=== PATIENT | female | born 1985 | race African-American/Black ===

== ENCOUNTER 2019-08-20 18:24 | Emergency (ER) | payer OTHER, SELFPAY ==
[2019-08-20 19:02] VITALS: BP 97/50; PULSE 109; RESP 16; TEMP 38; O2SAT 100
--- NOTE | 2019-08-20 19:04 | ED.GENADULT ---
HPI - General Adult General Chief complaint: Upper Respiratory Infection Stated complaint: Congestion, wheezing, body aches, JOY Time Seen by Provider: 08/20/19 18:35 History of Present Illness HPI narrative: Patient is a 34-year-old female who presents ER with runny nose/sore throat/cough. Patient was seen in urgent care last night and tested negative for flu but her son tested positive for the flu. She was prescribed Tamiflu and has been taking as prescribed. She has not been taking any antipyretics. She reports body aches. No vomiting but feels dehydrated. Currently febrile. Related Data Allergies Allergy/AdvReac Type Severity Reaction Status Date / Time No Known Allergies Allergy Unverified 03/09/17 21:01 Review of Systems Review of Systems: All systems reviewed & are unremarkable except as noted in HPI and below Constitutional: Constitutional: Reports chills, Reports fatigue and Reports fever(s) ENT: Reports nasal congestion and Reports sore throat Respiratory: Respiratory: Reports cough, Reports dyspnea and Denies wheezing Gastrointestinal: Gastrointestinal: Denies abdominal pain, Denies nausea and Denies vomiting PMFSH Past Medical History Medical History (Updated 08/20/19 @ 19:09 by Ricardo Pickens MD) No pertinent past medical history Surgical History Surgical History (Updated 08/20/19 @ 19:06 by Ricardo Pickens MD) No pertinent past surgical history Social History Social History (Updated 08/20/19 @ 19:06 by Ricardo Pickens MD) Smoking status: Never smoker Gender identity (if verbalized by the patient): Female Exam Narrative: Exam Narrative: GENERAL: Well-appearing, well-nourished, and in no acute distress. HEAD: Normocephalic, atraumatic. ENT: Mucous membranes moist. CHEST: Clear to auscultation. No respiratory distress. HEART: Regular rate and rhythm. No murmur heard. Normal peripheral pulses. EXTREMITIES: Normal range of motion. Strength NEURO: Alert and oriented x3. PSYCH: Normal mood and affect. Course Course Emergency Course: IV fluid and Toradol here. Discharge home with prescription for ibuprofen. Vital Signs Vital signs: Vital Signs Temperature 100.4 F H 08/20/19 19:02 Pulse Rate 109 H 08/20/19 19:02 Respiratory Rate 16 08/20/19 19:02 Blood Pressure 97/50 L 08/20/19 19:02 Pulse Oximetry 100 08/20/19 19:02 Temperature 100.4 F H 08/20/19 19:02 Pulse Rate 97 08/20/19 19:44 Respiratory Rate 16 08/20/19 19:44 Blood Pressure 103/62 08/20/19 19:44 Pulse Oximetry 100 08/20/19 19:44 Medical Decision Making Vital Signs Vital Signs: Vital Signs Temperature 100.4 F H 08/20/19 19:02 Pulse Rate 109 H 08/20/19 19:02 Respiratory Rate 16 08/20/19 19:02 Blood Pressure 97/50 L 08/20/19 19:02 Pulse Oximetry 100 08/20/19 19:02 Temperature 100.4 F H 08/20/19 19:02 Pulse Rate 97 08/20/19 19:44 Respiratory Rate 16 08/20/19 19:44 Blood Pressure 103/62 08/20/19 19:44 Pulse Oximetry 100 08/20/19 19:44 Discharge Plan Discharge Clinical Impression: Viral infection Patient Disposition: Home, Self-Care Condition: Stable Instructions: Viral Syndrome (ED) Additional Instructions: Return the ER if he cannot keep down food or water, you have chest pain or shortness of breath, you lose consciousness, you have additional concerns. Prescriptions: New ibuprofen 800 mg tablet 800 mg PO TID Qty: 20 RF: 0 Follow-up/Referrals: Glenroy Blanco MD [Physician] - 1 Week PHYSICIAN,CORE SETTER [Primary Care Provider] - Stand Alone Forms: Work/School Release IP
[2019-08-20] MEDS: KETOROLAC 30 MG/ML VIAL (*BKC) IV PUSH (19:16)
[2019-08-20] MEDS: SODIUM CHLORIDE 0.9% IV 1,000 ML 999 ML IV CONT (19:17)
[2019-08-20 19:44] VITALS: BP 103/62; PULSE 97; RESP 16; O2SAT 100
--- NOTE | 2019-08-27 14:45 | PC.NURSE ---
LATE ENTRY This note is being entered to document information to the patient's record. The following information was omitted on [08/27/19], by [Jaimee ANGEL stopped at 2017 on 08/20/19].
== END 2019-08-20 20:23 | disposition home or self-care (01) ==
PROVIDERS: Emergency Provider Emergency Medicine
DX: B34.9 Viral infection, unspecified (principal)
CPT/HCPCS: 96361; 96374; 99284; J1885; J7030

== ENCOUNTER 2022-01-26 15:41 | Outpatient (CLI) | payer OTHER, SELFPAY ==
[2022-01-26 16:09] LABS: Hematocrit 32.5 % (37.0-47.0); Hemoglobin 9.6 g/dL (12.0-15.0); Mean Corpuscular HGB Conc 29.5 g/dl (32-36); Mean Corpuscular Hemoglobin 21.2 pg (26-34); Mean Corpuscular Volume 71.7 fl (80-100); Mean Platelet Volume 9.3 fl (7.4-10.4); Platelet Count Result 574 k/mm3 (150-375); Red Blood Count 4.53 M/mm3 (4.2-5.4); Red Cell Distribution Width 18.8 % (11.5-14.5); White Blood Count 8.7 K/mm3 (4.5-10.0)
[2022-01-26 16:58] LABS: HIV 1/2 Ab P24 Ag Result Negative (Negative)
[2022-01-26 17:00] LABS: Hepatitis B Surface Antigen Negative (Negative)
[2022-01-26 17:17] LABS: Hepatitis C Virus Antibody Negative (Negative)
[2022-01-27 07:53] LABS: Rapid Plasma Reagin Non-Reactive (NonReactive)
== END 2022-01-26 15:42 | disposition home or self-care (01) ==
LOC: ANHLAB 15:43
PROVIDERS: Visit Provider Obstetrics & Gynecology
DX: N92.0 Excessive and frequent menstruation with regular cycle (principal); Z20.2 Contact with and (suspected) exposure to infections with a predominantly sexual mode of transmission
CPT/HCPCS: 36415; 84443; 85027; 86592; 86703; 86803; 87340; G0432

== ENCOUNTER 2023-03-27 15:02 | Outpatient (CLI) | payer OTHER, SELFPAY ==
--- NOTE | ~2023-03-27 | US_ITS ---
EXAMINATION: US pelvic complete w TV DATE: 03/27/2023 16:54 INDICATION: Pelvic and perineal pain Comparison:No prior studies for comparison. TECHNIQUE: Multiple transabdominal and endovaginal sonographic images of the pelvis performed. FINDINGS: The uterus measures 8.7 x 4.1 x 6.3 cm. Superficial shadowing is noted overlying the uterus anteriorly, likely prior section scar. The endometrial complex measures 16 mm. The right ovary measures 3.5 x 1.9 x 2.3 cm and the left ovary measures 3.8 x 2.7 x 2.5 cm. The there is a left ovarian cyst measuring 2 cm. There are small follicles in each ovary. Normal doppler signa l in both ovaries. There is free fluid in the pelvis. There are no abnormal masses seen on either side. IMPRESSION: 1. Left ovarian cyst measuring 2 cm. 2: Endometrial thickening measuring 1.6 cm. Reviewed, dictated and finalized at location A.
== END 2023-03-27 15:03 | disposition home or self-care (01) ==
PROVIDERS: Visit Provider Registered Nurse
DX: R10.2 Pelvic and perineal pain (principal); N83.202 Unspecified ovarian cyst, left side
CPT/HCPCS: 76830; 76856

== ENCOUNTER 2024-08-09 15:16 | Outpatient (CLI) | payer OTHER, SELFPAY ==
--- OUTSIDE RECORDS SUMMARY | 2024-08-09 15:31 | XMS_ITS | Encounter Summary ---
Author Organization [facility] Address [address] [place] [address] Care Team Providers Care Polymer Materials Consultant Name Role Phone José Antonio Domingo DO Primary Care Provider [phone] Encounter Details Date Type Department Care Team (Latest Contact Info) Description 04/04/2008 Outpatient [place] [address] [place] [address] Twin , Antepartum Social History Tobacco Use Types Packs/Day Years Used Date Smoking Tobacco: Never Assessed Comments Unknown Sex and Gender Information Value Date Recorded Sex Assigned at Not on file Legal Sex Female 5:23 AM WINDOW SHADE ESTIMATOR Gender Identity Not on file Sexual Orientation Not on file documented as of this encounter Plan of Treatment Not on file documented as of this encounter Procedures Procedure Name Priority Date/Time Associated Diagnosis Comments US OB LTD 1 OR MORE FETUSES Timed Study 04/11/2008 8:22 AM CDT documented in this encounter Results * US OB LTD 1 OR MORE FETUSES (04/11/2008 8:22 AM CDT) Anatomical Region Laterality Modality Pelvis Other Narrative 04/11/2008 8:22 AM CDT Results in [facility] Procedure Note 01/15/2009 Results in [facility] Paulette Nathan MD ORDERABLES Final Result documented in this encounter Visit Diagnoses Diagnosis Twin , antepartum documented in this encounter Care Teams Polymer Materials Consultant Relationship Specialty Start Date End Date José Antonio Domingo DO PCP - General 06/24/15 documented as of this encounter
--- OUTSIDE RECORDS SUMMARY | 2024-08-09 15:31 | XMS_ITS | Encounter Summary ---
Author Organization [facility] Address 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
--- OUTSIDE RECORDS SUMMARY | 2024-08-09 15:31 | XMS_ITS | Encounter Summary ---
Author Organization [employer] [facility] Address [address] [place] [address] Care Team Providers Care Dramatic Critic Name Role Phone José Antonio Domingo DO Primary Care Provider [phone] Encounter Details Date Type Department Care Team (Late st Contact Info) Description 06/27/2008 Inpatient Historical [place] [address] [place] [address] Laura Hector MD NO ADDRESS ON FILE Social History Tobacco Use Types Packs/Day Years Used Date Smoking Tobacco: Never Assessed Comments Unknown Sex and Gender Information Value Date Recorded Sex Assigned at Not on file Legal Sex Female 5:23 AM LEAF SORTER Gender Identity Not on file Sexual Orientation Not on file documented as of this encounter Plan of Treatment Not on file documented as of this encounter Procedures Procedure Name Priority Date/Time Associated Diagnosis Comments BACTERIAL VAGINOSIS STAIN Stat 06/27/2008 6:42 PM LEAF SORTER GC/CHLAMYDIA, GENITAL Stat 06/27/2008 6:42 PM LEAF SORTER (BROTH-ENRICHED) GROUP B STREP DETECTION Stat 06/27/2008 6:42 PM LEAF SORTER FIBRONECTIN Stat 06/27/2008 6:4 2 PM LEAF SORTER CBC WITH DIFFERENTIAL Stat 06/27/2008 6:20 PM LEAF SORTER URINALYSIS W/REFLEX MICROSCOPIC Stat 06/27/2008 6:19 PM LEAF SORTER documented in this encounter Results * FIBRONECTIN (06/27/2008 6:42 PM LEAF SORTER) GESTATIONAL AGE 28.0 Weeks [facility] FIBRONECTIN Negative Negative [facility] Vaginal 06/27/2008 6:42 PM LEAF SORTER 06/27/2008 6:52 PM LEAF SORTER Paulette Nathan MD BODY FLUIDS AND STOOLS Final R esult Performing Organization Address [facility] Phone Number INTERFACE SYSTEM Refer to clinic/hospital department [facility] CLIA# [id number] [address] [place] [address] * BACTERIAL VAGINOSIS STAIN (06/27/2008 6:42 PM LEAF SORTER) FINAL REPORT Cells: epithelial cells > WBC's Kane Score = 0 Interpretation : ??Consistent with normal vaginal isabel [facility] Vaginal 06/27/2008 6:42 PM LEAF SORTER 06/27/2008 7:09 PM LEAF SORTER us Paulette Nathan MD MICROBIOLOGY - GENERAL ORDERAB LES Final Result Performing Organization Address [facility] Phone Number INTERFACE SYSTEM Refer to clinic/hospital department [facility] CLIA# [id number] [address] [place] [address] * STREPTOCOCCUS GROUP B CULTURE (06/27/2008 6:42 PM LEAF SORTER) PRELIMINARY REPORT Pending [facility] FINAL REPORT No Streptococcus Group B isolated. [facility] 06/27/2008 6:42 PM LEAF SORTER 06/27/2008 7:09 PM LEAF SORTER us Paulette Nathan MD MICROBIOLOGY - GENERAL ORDERAB LES Final Result Performing Organization Address City/[facility]/ZIP Co de Phone Number INTERFACE SYSTEM Refer to clinic/hospital department [facility] CLIA# [id number] [address] [place] [address] * GC AND CHLAMYDIA PROBE (06/27/2008 6:42 PM LEAF SORTER) FINAL REPORT No Neisseria gonorrhoeae detected. No Chlamydia trachomatis detected. [facility] Endocervical 06/27/2008 6:42 PM LEAF SORTER 06/27/2008 7:09 PM LEAF SORTER Narrative INTERFACE SYSTEM - 06/30/2008 2:59 PM LEAF SORTER All identification methods for Chlamydia trachomatis and Neisseria gonorrhoeae can yield false positive results. ??In circumstances where diagnosis could lead to adverse psychosocial impacts, additional testing is recommended. ??A negative test result does not exclude infection. ??Consultation with the lab is recommended whenever the test result is negative and the clinical indications strongly suggest Chlamydial or Gonorrhoeal infection. ??Culture is the only recommended procedure for diagnosing Chlamydial or Gonorrhoeal infection in cases of suspected child abuse. Paulette Nathan MD [employer] Fin al Result INTERFACE SYSTEM Refer to clinic/hospital department [facility] CLIA# [id number] [address] [place] [address] * (ABNORMAL) CBC WITH DIFFERENTIAL (06/27/2008 6:20 PM LEAF SORTER) WBC 9.3 4.0 - 9.8 K/uL [facility] MCH 28.5 27.2 - 32.6 pg [facility] MPV 10.2 9.3 - 12.4 fL [facility] HEMATOCRIT 30.5(L) 35.5 - 44.0 % [facility] RDW-STDEV 43.6 37.1 - 48.7 fL [facility] RBC 3.54(L) 3.90 - 4.90 M/uL [facility] MCHC 33.1 31.5 - 35.5 % [facility] MCV 86.2 82.0 - 99.0 fL [facility] PLATELETS 186 140 - 350 K/uL [facility] HEMOGLOBIN 10.1(L) 11.8 - 14.8 g/dL [facility] RDW 13.9 11.5 - 14.5 % [facility] LYMPHOCYTES 39 16 - 45 % [facility] MONOCYTE ABSOLUTE 0.72 0.10 - 1.30 K/uL [facility] LYMPHOCYTE ABSOLUTE 3.60 0.70 - 4.50 K/uL [facility] BASOPHILS 0 0 - 2 % [facility] MONOCYTES 8 3 - 13 % [facility] NEUTROPHILS 53 45 - 70 % [facility] NEUTROPHIL ABSOLUTE 4.94 1.90 - 7.00 K/uL [facility] EOSINOPHILS 1 0 - 7 % [facility] BASOPHILS ABSOLUTE 0.01 0.00 - 0.20 K/uL [facility] EOSINOPHIL ABSOLUTE 0.05 0.00 - 0.70 K/uL [facility] Blood specimen (specimen) 06/27/2008 6:20 PM LEAF SORTER 06/27/2008 6:25 PM LEAF SORTER us Paulette Nathan MD HEMATOLOGY ORDERABLES Edited INTERFACE SYSTEM Refer to clinic/hospital department [facility] CLIA# [id number] [address] [place] [address] * (ABNORMAL) URINALYSIS (06/27/2008 6:19 PM LEAF SORTER) COLOR UA Yellow [facility] NITRITE UA Negative Negative [facility] EPITHELIAL CELLS, URINE 2-5 /HPF [facility] UROBILINOGEN UA 2(H) <=1 mg/dL [facility] PH UA 7.0 5.0 - 8.0 [facility] WBC UA 2 0 - 5 /HPF [facility] KETONES UA Negative Negative [facility] CLARITY UA Slt. Cloudy(A) Clear [facility] BILIRUBIN UA Negative Negative [facility] PROTEIN UA Trace(A) Negative [facility] LEUKOCYTE ESTERASE UA Negative Negative [facility] RBC UA 1 0 - 4 /HPF [facility] SPECIFIC GRAVITY UA 1.016 1.001 - 1.035 [facility] GLUCOSE UA Negative Negative [facility] BLOOD UA Negative Negative [facility] Urine specimen (specimen) 06/27/2008 6:19 PM LEAF SORTER 06/27/2008 6:21 PM LEAF SORTER us Paulette Nathan MD URINE ORDERABLES Final Result INTERFACE SYSTEM Refer to clinic/hospital department [facility] CLIA# [id number] [address] [place] [address] documented in this encounter Visit Diagnoses Not on filedocumented in this encounter Care Teams Dramatic Critic Relationship Specialty Start Date End Date José Antonio Domingo DO PCP - General 06/24/15 documented as of this encounter
--- OUTSIDE RECORDS SUMMARY | 2024-08-09 15:31 | XMS_ITS | Clinical Summary ---
Author Organization [facility] Administrative Offices Address [address] [place] [address] Care Team Providers Care Mobile Service Rv Technician Name Role Phone José Antonio Domingo DO Primary Care Provider [phone] Allergies No known active allergies Medications azithromycin (ZITHROMAX) 250 mg tablet Take z pack as instructed. 1 Package None 09/05/2014 Active HYDROcodone-acet aminophen (NORCO) 5-325 mg tablet Take 1 Tab by mouth every 6 hours as needed for Pain. Max Daily Amount: 4 Tabs 5 Tab None 09/05/2014 Active Family History Medical History Relation Name Comments Diabetes Father Healthy Mother Relation Name Status Comments Father Alive Mother Alive Social History Tobacco Use Types Packs/Day Years Used Date Smoking Tobacco: Never Alcohol Use Standard Drinks/Week Comments Yes 0 (1 standard drink = 0.6 oz pur e alcohol) Comments No Sex and Gender Information Value Date Recorded Sex Assigned at Not on file Legal Sex Female 5:23 AM PERSONAL BANKING OFFICER Gender Identity Not on file Sexual Orientation Not on file Last Filed Vital Signs Vital Sign Reading Time Taken Comments Blood Pressure 95/54 09/05/2014 12:21 AM PERSONAL BANKING OFFICER Pulse 92 09/05/2014 12:21 AM PERSONAL BANKING OFFICER Temperature 36.8 ??C (98.2 ??F) 09/05/2014 12:[address] Respiratory Rate 16 09/04/2014 9:34 PM PERSONAL BANKING OFFICER Oxygen Saturation 100% 09/05/2014 12:21 AM PERSONAL BANKING OFFICER Inhaled Oxygen Concentration - - Weight 56.2 kg (124 lb) 09/04/2014 6:59 PM PERSONAL BANKING OFFICER Height 154.9 cm (5' 1 ) 09/04/2014 6:59 PM PERSONAL BANKING OFFICER Body Mass Index 23.43 09/04/2014 6:59 PM PERSONAL BANKING OFFICER Plan of Treatment Health Maintenance Due Date Last Done Comments DTAP/TDAP/TD VACCINES (1 - Tdap) 2005 HEPATITIS B VACCINES (1 of 3 - 19+ 3-dose series) 2005 CERVICAL CANCER SCREENING 2016 INFLUENZA VACCINE (#1) 2024 HPV VACCINES Aged Out No longer eligi ble based on patient's age to complete this topic PNEUMOCOCCAL VACCINE 0-64 YEARS Aged Out No longer eligible based on patient's age to complete this topic Insurance [facility] OPEN ACCESS HMO Care Teams Mobile Service Rv Technician Relationship Specialty Start Date End Date José Antonio Domingo DO PCP - General 06/24/15
--- OUTSIDE RECORDS SUMMARY | 2024-08-09 15:31 | XMS_ITS | Referral Summary ---
Author Organization [facility] Address [address] [place] [address] Care Team Providers Care Circuit Judge Name Role Phone José Antonio Domingo Primary Care Provider [phone] Source Comments [facility],non-owned Affiliates and Associated Physician Practices is amultiple site organization consisting of ambulatory clinics and hospital sitesin [place], [place], [place] and [place]. This disclosure is being madepursuant to the Care Everywhere program and may not contain all information available regarding this patient. Last updated 18.[facility] Allergies No known active allergies Medications * Be aware that medications may not be up to date on this document. Alwaysverify current medications with the patient. Medication Sig Dispensed Refills Start Date End Date Status benzonatate (TESSALON) 200 MG capsuleIndications:N asopharyngitis acute Take 1 capsule by mouth 3 times daily as needed for Cough 30 capsule 06/26/2018 Active fluticasone propionate (FLONASE) 50 MCG/ACT nasal sprayIndications:Jimmy opharyngitis acute [place] 2 sprays into each nostril once daily 1 bottles 06/26/2018 Active Active Problems No known active problems Immunizations Name Administration Dates Next Due Taking Point primary monoval ent 12+ yr 0.3mL Purple cap 01/05/2021,12/15/2020 HEP A VACCINE, ADULT 08/29/2018,01/31/2018 INFLUENZA VACCINE, QUADR. (F LUZONE; FLULAVAL; FLUARIX; AFLURIA QUADRIVALENT; 6MO+), 0.5 ML (IIV4) 05/08/2021,04/29/2019 MENINGOCOCCAL CONJUGATE (MCV4P) 01/24/2018 TDAP (7yrs+) 11/08/2017 Social History Tobacco Use Types Packs/Day Years Used Date Smoking Tobacco: Never Smokeless Tobacco: Never Tobacco Cessation:Counseling Given: No Alcohol Use Standard Drinks/Week Comments No 0 (1 standard drink = 0.6 oz pur e alcohol) Sex and Gender Information Value Date Recorded Sex Assigned at Not on file Gender Identity Not on file Sexual Orientation Not on file Last Filed Vital Signs Vital Sign Reading Time Taken Comments Blood Pressure 114/68 06/26/2018 6:21 PM ANALYTICAL TECH Pulse 84 06/26/2018 6:21 PM ANALYTICAL TECH Temperature 37 ??C (98.6 ??F) 06/26/2018 6:21 PM ANALYTICAL TECH Respiratory Rate 16 06/26/2018 6:21 PM ANALYTICAL TECH Oxygen Saturation 98% 06/26/2018 6:21 PM ANALYTICAL TECH Inhaled Oxygen Concentration - - Weight 60.3 kg (133 lb) 06/26/2018 6:21 PM ANALYTICAL TECH Height 154.9 cm (5' 1 ) 06/26/2018 6:21 PM ANALYTICAL TECH Body Mass Index 25.13 06/26/2018 6:21 PM ANALYTICAL TECH Plan of Treatment Not on file Administered Medications Care Teams Circuit Judge Relationship Specialty Start Date End Date José Antonio Domingo DO PCP - General Family Medicine 11/06/12
--- OUTSIDE RECORDS SUMMARY | 2024-08-09 15:31 | XMS_ITS | Encounter Summary ---
Author Organization [employer] Address [address] [place] [address] Care Team Providers Care Tax Consultant Name Role Phone Brayan Domingon Gloria Primary Care Provider [phone] Encounter Details Date Type Department Care Team (Latest Contact Info) Description 08/09/2008 Outpatient Historical [facility] [place] [address] [place] [address] Twin , Antepartum Social History Tobacco Use Types Packs/Day Years Used Date Smoking Tobacco: Never Assessed Comments Unknown Sex and Gender Information Value Date Recorded Sex Assigned at Not on file Legal Sex Female 5:23 AM ROUGE MIXER Gender Identity Not on file Sexual Orientation Not on file documented as of this encounter Plan of Treatment Not on file documented as of this encounter Procedures Procedure Name Priority Date/Time Associated Diagnosis Comments US BIOPHYSICAL PROF WO NST Timed Study 09/01/2008 10:46 AM ROUGE MIXER US BIOPHYSICAL PROF WO NST Timed Study 08/25/2008 11:25 AM ROUGE MIXER US OB LTD 1 OR MORE FETUSES Timed Study 08/11/2008 10:14 AM ROUGE MIXER US BIOPHYSICAL PROF W NST Timed Study 08/11/2008 10:14 AM ROUGE MIXER documented in this encounter Results * US BIOPHYSICAL PROF WO NST (09/01/2008 10:46 AM ROUGE MIXER) Anatomical Region Laterality Modality Pelvis Other Narrative 09/01/2008 10:46 AM ROUGE MIXER Results in [facility] Procedure Note 01/15/2009 Results in [facility] Paulette Nathan MD US ORDERABLES Final Result * US BIOPHYSICAL PROF WO NST (08/25/2008 11:25 AM ROUGE MIXER) Anatomical Region Laterality Modality Pelvis Other Narrative 08/25/2008 11:25 AM ROUGE MIXER Results in [employer] Procedure Note 01/15/2009 Results in [employer] Paulette Nathan MD US ORDERABLES Final Result * US BIOPHYSICAL PROF WO NST (08/18/2008 9:34 AM ROUGE MIXER) Anatomical Region Laterality Modality Pelvis Other Narrative Procedure Note 01/15/2009 Results in [employer] Paulette Nathan MD US ORDERABLES Final Result * US OB LTD 1 OR MORE FETUSES (08/11/2008 10:14 AM ROUGE MIXER) Anatomical Region Laterality Modality Pelvis Other Narrative 08/11/2008 10:14 AM ROUGE MIXER Results in [employer] Procedure Note 01/15/2009 Results in [employer] Paulette Nathan MD US ORDERABLES Final Result * US BIOPHYSICAL PROFILE (08/11/2008 10:14 AM ROUGE MIXER) Anatomical Region Laterality Modality Pelvis Other Narrative 08/11/2008 10:14 AM ROUGE MIXER Results in [employer] Procedure Note 01/15/2009 Results in [employer] Paulette Nathan MD US ORDERABLES Final Result documented in this encounter Visit Diagnoses Diagnosis Twin , antepartum documented in this encounter Care Teams Tax Consultant Relationship Specialty Start Date End Date José Antonio Domingo DO PCP - General 06/24/15 documented as of this encounter
--- OUTSIDE RECORDS SUMMARY | 2024-08-09 15:31 | XMS_ITS | Encounter Summary ---
Author Organization [employer] Address 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
--- OUTSIDE RECORDS SUMMARY | 2024-08-09 15:31 | XMS_ITS | Clinical Summary ---
Author Organization [facility] Address [address] [place] [address] Care Team Providers Care Campaign Advisor Name Role Phone José Antonio Domingo DO Primary Care Provider [phone] Allergies No known active allergies Medications norelgestromin-eth in.estradioL (ORTHO EVRA) 150-35 mcg/24 hrIndications:Preg alicia Contraception Apply 1 patch each week for 3 weeks, then remove for 1 week. 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 History of section, low transverse 08/11 Overview (04/14/2017): Twin Family history of fraternal twins 09/04/2008 H/O LEEP 04/14/2006 40 weeks gestation of Resolved Problems Problem Noted Date Diagnosed Date Resolved Date Group B streptococcal bacteriuria 10/20/2017 11/08/2017 Immunizations Name Administration Dates Next Due Tdap 11/08/2017 Surgical History Surgery Date Site/Laterality Comments SECTION 07/10/2008 - 07/09/2009 section TONSILLECTOMY Tonsillectomy OTHER SURGICAL HISTORY Abnormal PAP: leep CERVICAL BIOPSY W/ LOOP ELECTRODE EXCISION 07/10/2005 - 07/09/2006 Paps WNL since LEEP SECTION 11/08/2017 Medical History Medical History Date Comments History of abnormal cervical Papanicolaou smear 2005 Abnormal PAP Family History Medical History Relation Name Comments Diabetes Father Diabetes mellit us; Hypertension Mother Hypertension; Thyroid disease Mother Thyroid dise ase; Diabetes type II Other Family hist ory of Diabetes mellitus type 2; KDE 08/15/2014 -mother Thyroid disease Sister Thyroid diso rder; Relation Name Status Comments Father Mother Other Sister Social History Tobacco Use Types Packs/Day Years Used Date Smoking Tobacco: Never Smokeless Tobacco: Never Alcohol Use Standard Drinks/Week Comments No 0 (1 standard drink = 0.6 oz pur e alcohol) Comments No Sex and Gender Information Value Date Recorded Sex Assigned at Not on file Legal Sex Female 3:10 AM TELEPHONE RECORDER Gender Identity Female 11/28/2019 2:13 AM CDT Sexual Orientation Straight 11/28/2019 2: 13 AM CDT Obstetrics History Para Term AB IAB SAB Ectopic Multiple Livin g Live Births 2 2 2 1 3 3 Date Outcome GA Total Labor Labor/2nd/3rd Weight Sex Type Anes PTL Pat A1 A5 Name Clin 2008 Term 37w 0d 2.665 kg (5 lb 14 oz) M CS-LT ranv Spinal N Livin g Rimere Complications:None,Twin moraima h 2008 Term 37w 0d 2.325 kg (5 lb 2 oz) M CS-LT ranv Spinal N Livin g Rione Complications:Twin 2017 Term 40w 4d 0h 04m 0h 04m 3.739 kg (8 lb 3.9 oz) M CS-LT ranv Spinal N Livin g 8 9 HEMPHI LL,BOY RONAN muñoz, Dae Bosch MD Complications:None Delivery Location:This [facility] ([facility] Last Filed Vital Signs Vital Sign Reading Time Taken Comments Blood Pressure 110/64 11/28/2019 1:34 PM CDT Pulse 76 05/18/2018 12:03 PM TELEPHONE RECORDER Temperature 36.7 ??C (98.1 ??F) 11/28/2019 1:34 PM CD T Respiratory Rate 18 11/11/2017 6:50 AM CDT Oxygen Saturation 100% 11/09/2017 11:00 PM CDT Inhaled Oxygen Concentration - - Weight 60.3 kg (133 lb) 11/28/2019 1:34 PM CDT Height 154.9 cm (5' 1 ) 11/28/2019 1:34 PM CDT Body Mass Index 25.13 11/28/2019 1:34 PM CDT Plan of Treatment Not on file Insurance [facility] [place] [address] Advance Directives For more information, please contact: [phone] * Full Code (Latest Code Status on File) Date Activated Date Inactivated Comments 11/08/2017 9:48 AM 11/11/2017 3:58 PM * Full Code Date Activated Date Inactivated Comments 11/08/2017 6:49 AM 11/08/2017 9:48 AM Full CPR in ca se of cardiopulmonary arrest * Full Code Date Activated Date Inactivated Comments 11/08/2017 6:49 AM 11/08/2017 6:49 AM Full CPR in ca se of cardiopulmonary arrest Care Teams Campaign Advisor Relationship Specialty Start Date End Date José Antonio Domingo DO [address] [place] [id number] PCP - General Family Medicine 04/09/18
--- OUTSIDE RECORDS SUMMARY | 2024-08-09 15:31 | XMS_ITS | Encounter Summary ---
Author Organization [facility] Address [address] [place] [address] Care Team Providers Care Content Curator Name Role Phone Brayan Domingon Gloria Primary Care Provider Encounter Details Date Type Department Care Team (Late st Contact Info) Description 05/13/2008 Outpatient Historical [facility], Authorized P NO ADDRESS ON FILE Manish Galdamez DO [id number] [place] [address] Social History Tobacco Use Types Packs/Day Years Used Date Smoking Tobacco: Never Assessed Comments Unknown Sex and Gender Information Value Date Recorded Sex Assigned at Not on file Legal Sex Female 5:23 AM CLERK SPECIALIST Gender Identity Not on file Sexual Orientation Not on file documented as of this encounter Plan of Treatment Not on file documented as of this encounter Procedures Procedure Name Priority Date/Time Associated Diagnosis Comments STREP SCREEN GROUP A W/CULTURE Stat 05/13/2008 3:30 AM CLERK SPECIALIST CBC WITH DIFFERENTIAL Stat 05/13/2008 3:30 AM CLERK SPECIALIST COMPREHENSIVE METABOLIC PANEL Stat 05/13/2008 3:30 AM CLERK SPECIALIST documented in this encounter Results * (ABNORMAL) CBC WITH DIFFERENTIAL (05/13/2008 3:30 AM CLERK SPECIALIST) MPV 10.0 9.3 - 12.4 fL [facility] HEMATOCRIT 31.7(L) 35.5 - 44.0 % [facility] RDW-STDEV 41.9 37.1 - 48.7 fL [facility] RBC 3.74(L) 3.90 - 4.90 M/uL [facility] MCHC 33.8 31.5 - 35.5 % [facility] MCV 84.8 82.0 - 99.0 fL [facility] PLATELETS 243 140 - 350 K/uL [facility] HEMOGLOBIN 10.7(L) 11.8 - 14.8 g/dL [facility] RDW 13.8 11.5 - 14.5 % [facility] WBC 8.6 4.0 - 9.8 K/uL [facility] MCH 28.6 27.2 - 32.6 pg [facility] BASOPHILS 0 0 - 2 % [facility] BASOPHILS ABSOLUTE 0.01 0.00 - 0.20 K/uL [facility] MONOCYTES 8 3 - 13 % [facility] MONOCYTE ABSOLUTE 0.65 0.10 - 1.30 K/uL [facility] NEUTROPHILS 78(H) 45 - 70 % [facility] NEUTROPHIL ABSOLUTE 6.70 1.90 - 7.00 K/uL [facility] EOSINOPHILS 0 0 - 7 % [facility] EOSINOPHIL ABSOLUTE 0.01 0.00 - 0.70 K/uL [facility] LYMPHOCYTES 14(L) 16 - 45 % [facility] LYMPHOCYTE ABSOLUTE 1.23 0.70 - 4.50 K/uL [facility] Blood specimen (specimen) 05/13/2008 3:30 AM CLERK SPECIALIST 05/13/2008 3:40 AM CLERK SPECIALIST us Manish Galdamez DO HEMATOLOGY ORDERABLES Edited INTERFACE SYSTEM Refer to clinic/hospital department [facility] CLIA# [id number] [address] [place] [address] * STREP SCREEN GROUP A W/CULTURE (05/13/2008 3:30 AM CLERK SPECIALIST) PRELIMINARY REPORT Negative: ??Group A Strep Screen - Phoned report (with read back verified) to Anastasia in ER ??05/13/08 3:53 AM [facility] FINAL REPORT Negative: ??Group A Strep Screen - Phoned report (with read back verified) to Anastasia in ER ??05/13/08 3:53 AM Negative screen result was confirmed by culture. [facility] Specimen from throat (specimen) 05/13/2008 3:30 AM CLERK SPECIALIST 05/13/2008 3:43 AM CLERK SPECIALIST Manish Galdamez DO MICROBIOLOGY - GENERAL ORDER ROMULO Final Result Performing Organization Address [facility] de Phone Number INTERFACE SYSTEM Refer to clinic/hospital department [facility] CLIA# [id number] [address] [place] [address] * (ABNORMAL) COMPREHENSIVE METABOLIC PANEL (05/13/2008 3:30 AM CLERK SPECIALIST) SODIUM 136 135 - 145 mmol/L [facility] ALKALINE PHOSPHATASE 45 35 - 104 U/L [facility] CO2 21(L) 22 - 30 mmol/L [facility] BILIRUBIN TOTAL 0.2 0.2 - 1.0 mg/dL [facility] POTASSIUM 3.2(L) 3.5 - 4.9 mmol/L [facility] TOTAL PROTEIN 7.0 6.3 - 8.6 g/dL [facility] GLUCOSE 86 65 - 99 mg/dL [facility] AST 20 12 - 32 U/L [facility] BUN 6 6 - 20 mg/dL [facility] CALCIUM 8.9 8.6 - 10.2 mg/dL [facility] ALBUMIN 3.8 3.4 - 4.8 g/dL [facility] CHLORIDE 103 96 - 108 mmol/L [facility] CREATININE 0.56 0.51 - 0.95 mg/dL [facility] ALT 9 0 - 31 U/L [facility] GFR, >60 >=60 mL/min/1. 7 sq meter [facility] GFR >60 >=60 mL/min/1. 7 sq meter [facility] Comment: Modification of Diet in Renal Disease (MDRD) study formula. Estimated GFR rate interpretative information for both Americans and non- Americans is available on the [facility] Intranet at: [email or web address] Select: Lab Policies and Procedures Select: Reference Ranges - GFR Blood specimen (specimen) 05/13/2008 3:30 AM CLERK SPECIALIST 05/13/2008 3:40 AM CLERK SPECIALIST Manish Galdamez DO CHEMISTRY ORDERABLES Edited INTERFACE SYSTEM Refer to clinic/hospital department [facility] CLIA# [id number] [address] [place] [address] documented in this encounter Visit Diagnoses Not on filedocumented in this encounter Care Teams Content Curator Relationship Specialty Start Date End Date José Antonio Domingo DO PCP - General 06/24/15 documented as of this encounter
--- OUTSIDE RECORDS SUMMARY | 2024-08-09 15:31 | XMS_ITS | Encounter Summary ---
Author Organization [employer] [facility] Address [address] [place] [address] Care Team Providers Care Oracle Soa Architect Name Role Phone José Antonio Domingo DO Primary Care Provider [phone] Encounter Details Date Type Department Care Team (Latest Contact Info) Description 03/03/2008 Outpatient Historical [place] [address] [place] [address] Twin , Antepartum Social History Tobacco Use Types Packs/Day Years Used Date Smoking Tobacco: Never Assessed Comments Unknown Sex and Gender Information Value Date Recorded Sex Assigned at Not on file Legal Sex Female 5:23 AM RAILROAD DINING CAR STEWARDESS Gender Identity Not on file Sexual Orientation Not on file documented as of this encounter Plan of Treatment Not on file documented as of this encounter Procedures Procedure Name Priority Date/Time Associated Diagnosis Comments US OB LTD 1 OR MORE FETUSES Timed Study 03/03/2008 11:57 AM CDT documented in this encounter Results * US OB LTD 1 OR MORE FETUSES (03/03/2008 11:57 AM CDT) Anatomical Region Laterality Modality Pelvis Other Narrative 03/03/2008 11:57 AM CDT Results in [employer] Procedure Note 01/15/2009 Results in [employer] Paulette Nathan MD ORDERABLES Final Result documented in this encounter Visit Diagnoses Diagnosis Twin , antepartum documented in this encounter Care Teams Oracle Soa Architect Relationship Specialty Start Date End Date José Antonio Domingo DO PCP - General 06/24/15 documented as of this encounter
--- OUTSIDE RECORDS SUMMARY | 2024-08-09 15:31 | XMS_ITS | Encounter Summary ---
Author Organization [facility] Address [address] [place] [address] Care Team Providers Care Professor Of Chemical Engineering Name Role Phone José Antonio Domingo DO Primary Care Provider [phone] Encounter Details Date Type Department Care Team (Late st Contact Info) Description 02/15/1999 Outpatient [facility] Primary Care - [address] [place] [address] José Antonio Domingo DO Social History Tobacco Use Types Packs/Day Years Used Date Smoking Tobacco: Never Assessed Comments Unknown Sex and Gender Information Value Date Recorded Sex Assigned at Not on file Legal Sex Female 5:23 AM COMPRESSION MOLDING MACHINE OPERATOR Gender Identity Not on file Sexual Orientation Not on file documented as of this encounter Plan of Treatment Not on file documented as of this encounter Visit Diagnoses Not on filedocumented in this encounter Care Teams Professor Of Chemical Engineering Relationship Specialty Start Date End Date José Antonio Domingo DO PCP - General 06/24/15 documented as of this encounter
--- OUTSIDE RECORDS SUMMARY | 2024-08-09 15:31 | XMS_ITS | Encounter Summary ---
Author Organization [employer] [facility] Address [address] [place] [address] Care Team Providers Care Pulp Making Plant Operator Name Role Phone José Antonio Domingo DO Primary Care Provider [phone] Encounter Details Date Type Department Care Team (Latest Contact Info) Description 09/10/2008 Outpatient Historical [facility] [place] [address] [place] [address] Twin , Antepartum Social History Tobacco Use Types Packs/Day Years Used Date Smoking Tobacco: Never Assessed Comments Unknown Sex and Gender Information Value Date Recorded Sex Assigned at Not on file Legal Sex Female 5:23 AM MOVIE OPERATOR Gender Identity Not on file Sexual Orientation Not on file documented as of this encounter Plan of Treatment Not on file documented as of this encounter Visit Diagnoses Diagnosis Twin , antepartum documented in this encounter Care Teams Pulp Making Plant Operator Relationship Specialty Start Date End Date José Antonio Domingo DO PCP - General 06/24/15 documented as of this encounter
--- OUTSIDE RECORDS SUMMARY | 2024-08-09 15:31 | XMS_ITS | Encounter Summary ---
Author Organization [facility] Address [address] [place] [address] Care Team Providers Care Capsule Filler Name Role Phone José Antonio Domingo DO Primary Care Provider [phone] Encounter Details Date Type Department Care Team (Late st Contact Info) Description 03/17/1999 Outpatient [facility] Primary Care - [address] [place] [address] José Antonio Domingo DO Social History Tobacco Use Types Packs/Day Years Used Date Smoking Tobacco: Never Assessed Comments Unknown Sex and Gender Information Value Date Recorded Sex Assigned at Not on file Legal Sex Female 5:23 AM IT CONSULTANT Gender Identity Not on file Sexual Orientation Not on file documented as of this encounter Plan of Treatment Not on file documented as of this encounter Visit Diagnoses Not on filedocumented in this encounter Care Teams Capsule Filler Relationship Specialty Start Date End Date José Antonio Domingo DO PCP - General 06/24/15 documented as of this encounter
--- OUTSIDE RECORDS SUMMARY | 2024-08-09 15:31 | XMS_ITS | Encounter Summary ---
Author Organization [employer] Address [address] [place] [address] Care Team Providers Care Assistant Program Manager Name Role Phone José Antonio Domingo DO Primary Care Provider [phone] Encounter Details Date Type Department Care Team (Latest Contact Info) Description 06/06/2008 Outpatient Historical [place] [address] [place] [address] Twin , Antepartum Social History Tobacco Use Types Packs/Day Years Used Date Smoking Tobacco: Never Assessed Comments Unknown Sex and Gender Information Value Date Recorded Sex Assigned at Not on file Legal Sex Female 5:23 AM DIRECT MARKETING COORDINATOR Gender Identity Not on file Sexual Orientation Not on file documented as of this encounter Plan of Treatment Not on file documented as of this encounter Procedures Procedure Name Priority Date/Time Associated Diagnosis Comments US BIOPHYSICAL PROF WO NST Timed Study 06/26/2008 2:17 PM DIRECT MARKETING COORDINATOR US OB LTD 1 OR MORE FETUSES Timed Study 06/06/2008 11:11 AM DIRECT MARKETING COORDINATOR documented in this encounter Results * US BIOPHYSICAL PROF WO NST (06/26/2008 2:17 PM DIRECT MARKETING COORDINATOR) Anatomical Region Laterality Modality Pelvis Other Narrative 06/26/2008 2:17 PM DIRECT MARKETING COORDINATOR Results in [employer] Procedure Note 01/15/2009 Results in [employer] Paulette Nathan MD US ORDERABLES Final Result * US OB LTD 1 OR MORE FETUSES (06/06/2008 11:11 AM DIRECT MARKETING COORDINATOR) Anatomical Region Laterality Modality Pelvis Other Narrative 06/06/2008 11:11 AM DIRECT MARKETING COORDINATOR Results in [employer] Procedure Note 01/15/2009 Results in [employer] us Paulette Nathan MD US ORDERABLES Final Result documented in this encounter Visit Diagnoses Diagnosis Twin , antepartum documented in this encounter Care Teams Assistant Program Manager Relationship Specialty Start Date End Date José Antonio Domingo DO PCP - General 06/24/15 documented as of this encounter
--- OUTSIDE RECORDS SUMMARY | 2024-08-09 15:31 | XMS_ITS | Encounter Summary ---
Author Organization [employer] [facility] Address [address] [place] [address] Care Team Providers Care Casino Cashier Name Role Phone José Antonio Domingo DO Primary Care Provider [phone] Encounter Details Date Type Department Care Team (Latest Contact Info) Description 05/06/2008 Outpatient Historical [place] [address] [place] [address] Twin , Antepartum Social History Tobacco Use Types Packs/Day Years Used Date Smoking Tobacco: Never Assessed Comments Unknown Sex and Gender Information Value Date Recorded Sex Assigned at Not on file Legal Sex Female 5:23 AM CARTOGRAPHY/MAPPING TECHNICIAN Gender Identity Not on file Sexual Orientation Not on file documented as of this encounter Plan of Treatment Not on file documented as of this encounter Procedures Procedure Name Priority Date/Time Associated Diagnosis Comments US OB LTD 1 OR MORE FETUSES Timed Study 05/08/2008 2:11 PM CDT documented in this encounter Results * US OB LTD 1 OR MORE FETUSES (05/08/2008 2:11 PM CDT) Anatomical Region Laterality Modality Pelvis Other Narrative 05/08/2008 2:11 PM CDT Results in [employer] Procedure Note 01/15/2009 Results in [employer] Paulette Nathan MD ORDERABLES Final Result documented in this encounter Visit Diagnoses Diagnosis Twin , antepartum documented in this encounter Care Teams Casino Cashier Relationship Specialty Start Date End Date José Antonio Domingo DO PCP - General 06/24/15 documented as of this encounter
--- OUTSIDE RECORDS SUMMARY | 2024-08-09 15:31 | XMS_ITS | Patient Health Summary ---
Author Organization [facility] [employer] Address [address] [place] [address] Care Team Providers Care Timber Girdler Name Role Phone José Antonio Domingo Primary Care Provider [phone] Note from [facility],non-owned Affiliates and Associated Physician Practices is amultiple site organization consisting of ambulatory clinics and hospital sitesin [place], [place], [place] and [place]. This disclosure is being madepursuant to the Care Everywhere program and may not contain all information available regarding this patient. Last updated 18.[facility] Allergies No known active allergies Medications * Be aware that medications may not be up to date on this document. Alwaysverify current medications with the patient. * benzonatate (TESSALON) 200 MG capsule(Started 06/26/2018) Take 1 capsule by mouth 3 times daily as needed for Cough * fluticasone propionate (FLONASE) 50 MCG/ACT nasal spray(Started 06/26/2018) [place] 2 sprays into each nostril once daily Active Problems No known active problems Immunizations * Covid [employer] primary monovalent 12+ yr 0.3mL Purple cap(Given 01/05/2021, 12/15/2020) * HEP A VACCINE, ADULT(Given 08/29/2018, 01/31/2018) * INFLUENZA VACCINE, QUADR. (FLUZONE; FLULAVAL; FLUARIX; AFLURIA QUADRIVALENT; 6MO+), 0.5 ML (IIV4)(Given 05/08/2021, 04/29/2019) * MENINGOCOCCAL CONJUGATE (MCV4P)(Given 01/24/2018) * TDAP (7yrs+)(Given 11/08/2017) Social History Tobacco Use Types Packs/Day Years [...] Comments Blood Pressure 114/68 06/26/2018 6:21 PM COMPENSATION ASSOCIATE Pulse 84 06/26/2018 6:21 PM COMPENSATION ASSOCIATE Temperature 37 ??C (98.6 ??F) 06/26/2018 6:21 PM COMPENSATION ASSOCIATE Respiratory Rate 16 06/26/2018 6:21 PM COMPENSATION ASSOCIATE Oxygen Saturation 98% 06/26/2018 6:21 PM COMPENSATION ASSOCIATE Inhaled Oxygen Concentration - - Weight 60.3 kg (133 lb) 06/26/2018 6:21 PM COMPENSATION ASSOCIATE Height 154.9 cm (5' 1 ) 06/26/2018 6:21 PM COMPENSATION ASSOCIATE Body Mass Index 25.13 06/26/2018 6:21 PM COMPENSATION ASSOCIATE Procedures * SKIN TEST PPD - POINT OF CARE(Performed 01/15/2021) Performed for PPD screening test * SKIN TEST PPD - POINT OF CARE(Performed 01/14/2019) Performed for PPD screening test * CULTURE RESPIRATORY UPPER(Performed 06/26/2018) Performed for Nasopharyngitis acute * MONONUCLEOSIS SCREEN - POINT OF CARE (AMB) STL(Performed 06/26/2018) Performed for Nasopharyngitis acute * STREP A SCREEN - POINT OF CARE (AMB) STL(Performed 06/26/2018) Performed for Nasopharyngitis acute * SKIN TEST PPD - POINT OF CARE(Performed 02/02/2018) Performed for Screening for tuberculosis * XR CHEST 2VW(Performed 05/10/2013) Performed for Cough * STREP A SCREEN - POINT OF CARE (IP)(Performed 05/10/2013) * HCG URINE QUALITATIVE - POINT OF CARE(Performed 11/06/2012) * STREP A SCREEN DIRECT W RFLX STREP A CULTURE(Performed 11/06/2012) Results * SKIN TEST PPD - POINT OF CARE (01/15/2021 4:31 PM CDT) Only the most recent of3 resultswithin the time period is included. PPD negative. [facility] Other MISCELLANEOUS SAMPLE S / Unknown 01/15/2021 4:31 PM CDT Troy Alexandra THERMAL SPRAY OPERATOR-ORDER BOOKER LAB - POINT OF CARE ORDERABLES [facility] [place] [address] [place] [address], [facility] [phone] * [facility] Throat Culture (06/26/2018 6:44 PM COMPENSATION ASSOCIATE) Upper Respiratory Culture Final report [facility] INSURANCE BILL Result 1 [facility] INSURANCE BILL Comment:Routine respiratory isabel Microbiology ENTIRE THROAT (SURFACE REGION OF NECK) / Unknown 06/26/2018 6:44 PM COMPENSATION ASSOCIATE 06/26/2018 Narrative Resulting Agency Comment [facility] [address] [facility] ??[facility] [id number] Tiesha Stauffer THERMAL SPRAY OPERATOR-ORDER BOOKER LAB - MICR OBIOLOGY ORDERABLES [facility] INSURANCE BILL [address] [place] [address] * STREP A SCREEN (06/26/2018 6:40 PM COMPENSATION ASSOCIATE) Strep A Rapid POCT Negative Negative Strep A Internal Control Present Lot # [id number] Expiration Date 11/07/2019 Throat ENTIRE THROAT (SURFACE REGION OF NECK) / Unknown 06/26/2018 6:40 PM COMPENSATION ASSOCIATE Tiesha Stauffer THERMAL SPRAY OPERATOR-ORDER BOOKER LAB - POIN T OF CARE ORDERABLES * MONONUCLEOSIS SCREEN - POINT OF CARE (AMB) STL (06/26/2018 6:40 PM COMPENSATION ASSOCIATE) Mononucleosis Screen POCT negative NEGATIVE Granite Test Internal Control present Granite Test Lot# [id number] Granite Test Exp Date 01/07/2020 Blood BLOOD SPECIMEN / Unknown 06/26/2018 6:40 PM COMPENSATION ASSOCIATE Tiesha Donnellyeal THERMAL SPRAY OPERATOR-ORDER BOOKER LAB - POIN T OF CARE ORDERABLES * CXR - PA & LATERAL (05/10/2013 10:36 PM CDT) Anatomical Region Laterality Modality Chest Radiographic Ute ging 05/11/2013 8:34 AM CDT Narrative 05/11/2013 8:34 AM CDT PA + Lateral Chest INDICATION: Cough COMPARISON: none available FINDINGS: There is no focal infiltrate or consolidation. ??There is no pleural effusion or pneumothorax. ??A mass is not detected. ??The heart size is normal. Procedure Note El Tubbs MD - 05/11/2013 PA + Lateral Chest INDICATION: Cough COMPARISON: none available FINDINGS: There is no focal infiltrate or consolidation. There is no pleural effusion or pneumothorax. A mass is not detected. The heart size is normal. Sal Em MD DIAGNOSTIC IMAGING O RDERABLES * STREP A SCREEN - POINT OF CARE (IP) (05/10/2013 10:35 PM CDT) Strep A Rapid POCT negative Negative [facility] POCT TEST[facility] QC Verified yes Yes [facility] POC T TESTING Throat swab (specimen) ENTIRE THROAT (SURFACE REGION OF NECK) / Unknown 05/10/2013 10:35 PM CDT Sal Em MD LAB - POINT OF CARE ORDERABLES Performing Organization Address City/[facility] Co de Phone Number [facility] POCT TEST[facility] [address] [place] [address] * HCG URINE QUALITATIVE - POINT OF CARE (IP) (11/06/2012 4:21 PM CDT) HCG Qual Urine negative Negative [facility] POCT TEST[facility] QC Verified yes Yes [facility] POC T TESTING Urine specimen (specimen) URINE / Unknown 11/06/2012 4:21 PM CDT Teena MARIA LAB - POINT OF CARE ORDERABLES Performing Organization Address [facility]/ZIP Co de Phone Number [facility] POCT [facility] [address] [place] [address] * STREP A SCREEN DIRECT W RFLX STREP A CULTURE (11/06/2012 3:02 PM CDT) Pathologist [facility] Strep A Rapid Negative Negative 11/06/2012 3:48 PM CDT [facility] Throat swab (specimen) ENTIRE THROAT (SURFACE REGION OF NECK) / Unknown 11/06/2012 3:02 PM CDT 11/06/2012 3:35 PM CDT Teena MARIA LAB - MICROBIOLOGY O RDERABLES [facility] [address] [place] [address] Care Teams Timber Girdler Relationship Specialty Start Date End Date José Antonio Domingo DO PCP - General Family Medicine 11/06/12
--- OUTSIDE RECORDS SUMMARY | 2024-08-09 15:31 | XMS_ITS | Encounter Summary ---
Author Organization [employer] [facility] Address [address] [place] [address] Care Team Providers Care Executive Creative Director Name Role Phone Brayan Domingon Gloria Primary Care Provider [phone] Encounter Details Date Type Department Care Team (Latest Contact Info) Description 07/08/2008 Outpatient Historical [facility] [place] [address] [place] [address] Twin , Antepartum Social History Tobacco Use Types Packs/Day Years Used Date Smoking Tobacco: Never Assessed Comments Unknown Sex and Gender Information Value Date Recorded Sex Assigned at Not on file Legal Sex Female 5:23 AM CLOSET BUILDER Gender Identity Not on file Sexual Orientation Not on file documented as of this encounter Plan of Treatment Not on file documented as of this encounter Procedures Procedure Name Priority Date/Time Associated Diagnosis Comments US BIOPHYSICAL PROF WO NST Timed Study 08/04/2008 1:59 PM CLOSET BUILDER US BIOPHYSICAL PROF WO NST Timed Study 07/29/2008 8:38 AM CLOSET BUILDER US OB LTD 1 OR MORE FETUSES Timed Study 07/14/2008 3:37 PM CLOSET BUILDER documented in this encounter Results * US BIOPHYSICAL PROF WO NST (08/04/2008 1:59 PM CLOSET BUILDER) Anatomical Region Laterality Modality Pelvis Other Narrative 08/04/2008 1:59 PM CLOSET BUILDER Results in [employer] Procedure Note 01/15/2009 Results in [employer] Paulette Nathan MD US ORDERABLES Final Result * US BIOPHYSICAL PROF WO NST (07/29/2008 8:38 AM CLOSET BUILDER) Anatomical Region Laterality Modality Pelvis Other Narrative 07/29/2008 8:38 AM CLOSET BUILDER Results in [employer] Procedure Note 01/15/2009 Results in [employer] Paulette Nathan MD US ORDERABLES Final Result * US OB LTD 1 OR MORE FETUSES (07/14/2008 3:37 PM CLOSET BUILDER) Anatomical Region Laterality Modality Pelvis Other Narrative 07/14/2008 3:37 PM CLOSET BUILDER Results in [employer] Procedure Note 01/15/2009 Results in [employer] Paulette Nathan MD US ORDERABLES Final Result documented in this encounter Visit Diagnoses Diagnosis Twin , antepartum documented in this encounter Care Teams Executive Creative Director Relationship Specialty Start Date End Date José Antonio Domingo DO PCP - General 06/24/15 documented as of this encounter
--- OUTSIDE RECORDS SUMMARY | 2024-08-09 15:31 | XMS_ITS | Encounter Summary ---
Author Organization [facility] Address [address] [place] [address] Care Team Providers Care Professor Of Legal Studies Name Role Phone José Antonio Domingo Primary Care Provider [phone] Encounter Details Date Type Department Care Team (Late st Contact Info) Description 09/21/2005 Outpatient Historical [facility] Manish Galdamez DO [address] [place] [address] Er, Authorized P NO ADDRESS ON FILE Influenza with Other Respiratory Manifestations (Primary Dx) Social History Tobacco Use Types Packs/Day Years Used Date Smoking Tobacco: Never Assessed Comments Unknown Sex and Gender Information Value Date Recorded Sex Assigned at Not on file Legal Sex Female 5:23 AM CHILD WELFARE WORKER Gender Identity Not on file Sexual Orientation Not on file documented as of this encounter Plan of Treatment Not on file documented as of this encounter Procedures Procedure Name Priority Date/Time Associated Diagnosis Comments MONONUCLEOSIS SCREEN Routine 09/21/2005 7:54 PM CHILD WELFARE WORKER documented in this encounter Results * MONONUCLEOSIS SCREEN (09/21/2005 7:54 PM CHILD WELFARE WORKER) MONONUCLEOSIS SCREEN Negative Negative INTERFACE SYSTEM 09/21/2005 7:54 PM CHILD WELFARE WORKER Manish Galdamez DO HEMATOLOGY ORDERABLES Final Result INTERFACE SYSTEM Refer to clinic/hospital department documented in this encounter Visit Diagnoses Diagnosis Influenza with other respiratory manifestations- Primary documented in this encounter Care Teams Professor Of Legal Studies Relationship Specialty Start Date End Date José Antonio Domingo DO PCP - General 06/24/15 documented as of this encounter
--- OUTSIDE RECORDS SUMMARY | 2024-08-09 15:31 | XMS_ITS | Clinical Summary ---
Author Organization [facility] [employer] Address [address] [place] [address] Care Team Providers Care Access Services Assistant Name Role Phone José Antonio Domingo Primary Care Provider [phone] Source Comments [facility] [employer],non-owned Affiliates and Associated Physician Practices is amultiple site organization consisting of ambulatory clinics and hospital sitesin [place], [place], [place] and [place]. This disclosure is being madepursuant to the Care Everywhere program and may not contain all information available regarding this patient. Last updated 18.[facility] [employer] Allergies No known active allergies Medications * [...] (FLONASE) 50 MCG/ACT nasal sprayIndications:Jimmy opharyngitis acute Novi 2 sprays into each nostril once daily 1 bottles 06/26/2018 Active Active Problems No known active problems Immunizations Name Administration Dates Next Due [employer] primary monoval ent 12+ yr 0.3mL Purple cap 01/05/2021,12/15/2020 HEP A VACCINE, ADULT 08/29/2018,01/31/2018 INFLUENZA VACCINE, QUADR. (F LUZONE; FLULAVAL; FLUARIX; AFLURIA QUADRIVALENT; 6MO+), 0.5 ML (IIV4) 05/08/2021,04/29/2019 MENINGOCOCCAL CONJUGATE (MCV4P) 01/24/2018 TDAP (7yrs+) 11/08/2017 Family History Medical History Relation Name Comments Diabetes - Type 2 Father Hypertension Father Hypertension Mother Asthma Neg Hx Autoimmune Disease Neg Hx Bipolar Disorder Neg Hx Cancer - Breast Neg Hx Cancer - Colon Neg Hx Cancer - Other Neg Hx Cancer - Ovarian Neg Hx Cancer - Pancreatic Neg Hx Cancer - Prostate Neg Hx Depression Neg Hx Eczema Neg Hx Migraine Neg Hx Osteoporosis Neg Hx Seizures Neg Hx Sudd. <30 Neg Hx Thyroid Disease Neg Hx Ulcerative Colitis Neg Hx Relation Name Status Comments Father Alive Mother [...] Comments Blood Pressure 114/68 06/26/2018 6:21 PM COP WINDER Pulse 84 06/26/2018 6:21 PM COP WINDER Temperature 37 ??C (98.6 ??F) 06/26/2018 6:21 PM COP WINDER Respiratory Rate 16 06/26/2018 6:21 PM COP WINDER Oxygen Saturation 98% 06/26/2018 6:21 PM COP WINDER Inhaled Oxygen Concentration - - Weight 60.3 kg (133 lb) 06/26/2018 6:21 PM COP WINDER Height 154.9 cm (5' 1 ) 06/26/2018 6:21 PM COP WINDER Body Mass Index 25.13 06/26/2018 6:21 PM COP WINDER Plan of Treatment Health Maintenance Due Date Last Done Comments PAP SMEAR 1985 HIV SCREENING 2001 HEPATITIS C SCREENING 04/26/2004 HEPATITIS B VACCINE (1 of 3 - 19+ 3-dose series) 2005 COVID-19 VACCINE (3 - 2023-2 5 season) 2024 01/05/2021, 12/15/2020 INFLUENZA VACCINE (#1) 2024 , 04/29/2019 DEPRESSION SCREENING 07/10/2024 DTAP/TDAP/TD VACCINES (2 - T d or Tdap) 11/09/2027 11/08/2017 ZOSTER VACCINE (1 of 2) 2036 MENINGOCOCCAL VACCINE Aged Out 01/24/2018 No dixon colleen eligible based on patient's age to complete this topic HEPATITIS A VACCINE Completed 08/29/2018, 01/31/2018 HIB VACCINE Aged Out No longer eligi ble based on patient's age to complete this topic HPV VACCINE Aged Out No longer eligi ble based on patient's age to complete this topic MENINGOCOCCAL (Group B) VACCINE Aged Out No longer eligible b ased on patient's age to complete this topic PNEUMOCOCCAL VACCINE Aged Out No long er eligible based on patient's age to complete this topic Care Teams Access Services Assistant Relationship Specialty Start Date End Date José Antonio Domingo DO PCP - General Family Medicine 11/06/12
--- OUTSIDE RECORDS SUMMARY | 2024-08-09 15:31 | XMS_ITS | Encounter Summary ---
Author Organization [facility] Address [address] [place] [address] Care Team Providers Care Exhaust Equipment Operator Name Role Phone Brayan Domingon Gloria Primary Care Provider [phone] Encounter Details Date Type Department Care Team (Late st Contact Info) Description 07/07/2008 Outpatient Historical [place] [address] [place] [address] Normal Delivery Social History Tobacco Use Types Packs/Day Years Used Date Smoking Tobacco: Never Assessed Comments Unknown Sex and Gender Information Value Date Recorded Sex Assigned at Not on file Legal Sex Female 5:23 AM SHOE CLEANER Gender Identity Not on file Sexual Orientation Not on file documented as of this encounter Plan of Treatment Not on file documented as of this encounter Procedures Procedure Name Priority Date/Time Associated Diagnosis Comments TYPE AND SCREEN Routine 09/04/2008 6:57 PM SHOE CLEANER CBC WITH DIFFERENTIAL Stat 09/04/2008 6:44 PM SHOE CLEANER PATHOLOGY Routine 09/04/2008 5:00 PM SHOE CLEANER documented in this encounter Results * TYPE AND SCREEN (09/04/2008 6:57 PM SHOE CLEANER) HISTORY CHECK No Historical ABO/Rh [facility] SPECIMEN LIFE 3 days from drawdate [facility] ABO/RH TYPE A Positive [facility] [place] ANTIBODY SCREEN Negative [facility] Blood specimen (specimen) 09/04/2008 6:57 PM SHOE CLEANER Mio Sosa MD BLOOD BANK ORDERABLES Edited INTERFACE SYSTEM Refer to clinic/hospital department [facility] CLIA# [id number] [address] [place] [address] * (ABNORMAL) CBC WITH DIFFERENTIAL (09/04/2008 6:44 PM SHOE CLEANER) WBC 9.7 4.0 - 9.8 K/uL [facility] MCH 28.7 27.2 - 32.6 pg [facility] MPV 11.6 9.3 - 12.4 fL [facility] HEMATOCRIT 35.3(L) 35.5 - 44.0 % [facility] RDW-STDEV 45.0 37.1 - 48.7 fL [facility] RBC 4.22 3.90 - 4.90 M/uL [facility] MCHC 34.3 31.5 - 35.5 % [facility] MCV 83.6 82.0 - 99.0 fL [facility] PLATELETS 185 140 - 350 K/uL [facility] HEMOGLOBIN 12.1 11.8 - 14.8 g/dL [facility] RDW 14.7(H) 11.5 - 14.5 % [facility] LYMPHOCYTES 35 16 - 45 % [facility] LYMPHOCYTE ABSOLUTE 3.36 0.70 - 4.50 K/uL [facility] BASOPHILS 0 0 - 2 % [facility] BASOPHILS ABSOLUTE 0.01 0.00 - 0.20 K/uL [facility] MONOCYTES 10 3 - 13 % [facility] MONOCYTE ABSOLUTE 1.01 0.10 - 1.30 K/uL [facility] NEUTROPHILS 55 45 - 70 % [facility] NEUTROPHIL ABSOLUTE 5.30 1.90 - 7.00 K/uL [facility] EOSINOPHILS 0 0 - 7 % [facility] EOSINOPHIL ABSOLUTE 0.02 0.00 - 0.70 K/uL [facility] Blood specimen (specimen) 09/04/2008 6:44 PM SHOE CLEANER 09/04/2008 7:04 PM SHOE CLEANER us Mio Sosa MD HEMATOLOGY ORDERABLES Edited INTERFACE SYSTEM Refer to clinic/hospital department [facility] CLIA# [id number] [address] [place] [address] * PATHOLOGY (09/04/2008 5:00 PM SHOE CLEANER) FINAL REPORT ?[facility] ?[address] ? [place], [place] ??[id number] ? Patient: ??VANDANA HERCULES N ? : ??1985 ? Procedure Date: ??09/04/2008 ? Accession Date: ??09/05/2008 ? Case No: ??[id number] ? Ordering Dr: ??MIO SOSA ? Case types AW, BW, FW, NW and SH are performed by [facility] ? Ctr, [place], [place] ?SURGICAL PATHOLOGY & NON-GYNECOLOGIC CYTOPATHOLOGY REPORT ? DIAGNOSIS ? PLACENTA, SECTION: ? - DIAMNIONIC, DICHORIONIC, FUSED TWIN PLACENTAS. ? MEMBRANES, DOMAINS 1 AND 2, SECTION: ? - NO PATHOLOGIC DIAGNOSIS. ? UMBILICAL CORDS, DOMAINS 1 AND 2, SECTION: ? - NO PATHOLOGIC DIAGNOSIS. ? Specimen Description: ? Placenta and cord. ? Operative Procedure: ? Primary section. ? Patient Information/Histor y/Diagnosis: ? Twin intrauterine at 38-1/7 weeks. ? Gross: ? The specimen is received in a container labeled Vandana Hercules and ? twins, A equals one, B equals two, no micro ordered and consists of fused ? twin placentas with a total weight of 819 g and measuring 31.8 x 23.3 x up ? to 1.5 cm. The placenta with one cord clamp has been designated Baby A ? and the cord with two clamps has been designated Baby B. The dividing ? membrane is consistent with a dichorionic, diamnionic twin gestation. ? The placenta of baby A measures 15.3 x 23 x up to 1.5 cm. The attached ? trivascular umbilical cord attaches paracentrally 8 cm from the closest ? placental margin and measures 34.5 x up to 2 cm. Additionally received is a ? detached portion of umbilical cord that measures 10.5 x up to 2.5 cm. The ? membranes attach at the margin and have ruptured 2 cm from the ? margin. The surface is blue-mera and has tortuous vessels coursing ? beneath the chorion. The maternal surface is red-mera with intact ? cotyledons and no deforming or adherent clot. Sectioning of the placental ? reveals beefy red, spongy cut surfaces with no lesions identified. ? Core Oven Tender sections are submitted as follows: A1-umbilical cord and ? membranes; A2 through A4-provider service representative sections of central ? parenchyma; A5-dividing membranes. ? The placenta of baby B measures 16.5 x 23.3 x up to 1.5 cm. The trivascular ? umbilical cord attaches paracentrally 7 cm from the closest placental ? margin and measures 47.7 x 1.1 cm. Additionally received is a detached ? portion of umbilical cord that measures 4 x 1.8 cm. The membranes ? insert at the margin and have ruptured 4.7 cm from the margin. The ? surface is blue-mera with tortuous vessels coursing beneath the chorion. ? The maternal surface is red-mera with intact cotyledons and no lesions ? identified. Serial sectioning reveals beefy red, spongy parenchyma with no ? lesions identified. Core [employer]ven Tender sections are submitted as follows: B1- ? umbilical cord and membranes; B2 through B4-provider service representative sections ? of central parenchyma. ? OJL/GIAN 09.06.2008 12:17 pm ? Microscopic: ? The slides are labeled [id number], Vandana Hercules. ? The villous morphology and recorded placental weights are appropriate for a ? 30-week gestation. The dividing membranes consist of 2 layers of amnion ? with intervening chorion, typical of diamnionic, dichorionic placentation. ? No parenchymal abnormalities are identified in either disc. There is no ? evidence of inflammation involving the membranes or either umbilical ? cord. ? KHF/GDH 09.08.2008 04:21 pm ? Staging Form: ? No. ? ELECTRONIC SIGNATURE FOR JEN ZHOU M.D.- 09/08/08 05:17 pm INTERFACE SYSTEM 09/04/2008 5:00 PM SHOE CLEANER us Mio Sosa MD PATHOLOGY/CYTOLOGY ORDERABLES Final Result INTERFACE SYSTEM Refer to clinic/hospital department documented in this encounter Visit Diagnoses Diagnosis Normal delivery documented in this encounter Care Teams Exhaust Equipment Operator Relationship Specialty Start Date End Date José Antonio Domingo DO PCP - General 06/24/15 documented as of this encounter
--- OUTSIDE RECORDS SUMMARY | 2024-08-09 15:31 | XMS_ITS | Referral Summary ---
[facility] Address [address] [place] [address] Care Team Providers Care Civil Division Deputy Sheriff Name Role Phone hCayo José Antonio Coats DO Primary Care Provider [phone] Allergies No known active allergies Medications norelgestromin-eth [...] Name Administration Dates Next Due Tdap 11/08/2017 Social History Tobacco Use Types Packs/Day Years Used Date Smoking Tobacco: Never Smokeless Tobacco: Never Alcohol Use Standard Drinks/Week Comments No 0 (1 standard drink = 0.6 oz pur e alcohol) Comments No Sex and Gender Information Value Date Recorded Sex Assigned at Not on file Legal Sex Female 3:10 AM CIRCUIT DESIGN ENGINEER Gender Identity Female 11/28/2019 2:13 AM CDT Sexual Orientation Straight 11/28/2019 2: 13 AM CDT Last Filed Vital Signs Vital Sign Reading Time Taken Comments Blood Pressure 110/64 11/28/2019 1:34 PM CDT Pulse 76 05/18/2018 12:03 PM CIRCUIT DESIGN ENGINEER Temperature 36.7 ??C (98.1 ??F) 11/28/2019 1:34 PM CD T Respiratory Rate 18 11/11/2017 6:50 AM CDT Oxygen Saturation 100% 11/09/2017 11:00 PM CDT Inhaled Oxygen Concentration - - Weight 60.3 kg (133 lb) 11/28/2019 1:34 PM CDT Height 154.9 cm (5' 1 ) 11/28/2019 1:34 PM CDT Body Mass Index 25.13 11/28/2019 1:34 PM CDT Plan of Treatment Not on file Insurance Advance Directives For more information, please contact: [phone] * Full Code (Latest Code Status on [...] ca se of cardiopulmonary arrest Care Teams Civil Division Deputy Sheriff Relationship Specialty Start Date End Date José Antonio Domingo DO [address] [place] [address] PCP - General Family Medicine 04/09/18
--- OUTSIDE RECORDS SUMMARY | 2024-08-09 15:31 | XMS_ITS | Encounter Summary ---
Author Organization [employer] [facility] Address [address] [place] [address] Care Team Providers Care Cable Television Program Director Name Role Phone José Antonio Domingo DO Primary Care Provider [phone] Encounter Details Date Type Department Care Team (Latest Contact Info) Description 06/07/2008 Outpatient Historical [facility] [place] [address] [place] [address] Twin , Antepartum Social History Tobacco Use Types Packs/Day Years Used Date Smoking Tobacco: Never Assessed Comments Unknown Sex and Gender Information Value Date Recorded Sex Assigned at Not on file Legal Sex Female 5:23 AM LICENSED MASSAGE PRACTITIONER Gender Identity Not on file Sexual Orientation Not on file documented as of this encounter Plan of Treatment Not on file documented as of this encounter Visit Diagnoses Diagnosis Twin , antepartum documented in this encounter Care Teams Cable Television Program Director Relationship Specialty Start Date End Date José Antonio Domingo DO PCP - General 06/24/15 documented as of this encounter
== END 2024-08-09 15:17 | disposition home or self-care (01) ==
LOC: ANHLAB 15:25
PROVIDERS: Visit Provider Nurse Practitioner Obstetrics & Gynecology
DX: R53.83 Other fatigue (principal)
CPT/HCPCS: 36415; 82306; 84443

== ENCOUNTER 2024-09-02 12:56 | Outpatient (CLI) | payer OTHER, SELFPAY ==
--- NOTE | ~2024-09-02 | US_ITS ---
EXAMINATION: US pelvic complete w TV DATE: 09/02/2024 13:50 INDICATION: Unspecified ovarian cyst, left side. TECHNIQUE: Multiple transabdominal and transvaginal sonographic images of the pelvis were obtained. COMPARISON: Ultrasound 03/27/2023 FINDINGS: TRANSABDOMINAL ULTRASOUND: The uterus measures 8.7 x 5.5 x 5.2 cm. There is no free fluid in the pelvis. TRANSVAGINAL ULTRASOUND: The endometrial complex measures 16 mm in thickness. The right ovary measures 2.6 x 2.1 x 2.0 cm. The left ovary measures 2.7 x 2.8 x 3.1 cm. No pleural effusion. IMPRESSION: 1. Normal pelvis. Reviewed, dictated and finalized at location A. GRAPH OFFICE MANAGER IMPRESSION: 1. Normal pelvis.
--- OUTSIDE RECORDS SUMMARY | 2024-09-02 14:40 | XMS_ITS | Referral Summary ---
Author Organization [facility] [employer] Address [address] [address] Care Team Providers Care Registered Nurse Cardiac Telemetry Name Role Phone José Antonio Domingo Primary Care Provider [phone] Source Comments [facility] [employer],non-owned Affiliates and Associated Physician Practices is amultiple site organization consisting of ambulatory clinics and hospital sitesin [place], [place], [place] and [place]. This disclosure is being madepursuant to the Care Everywhere program and may not contain all information available regarding this patient. Last updated 18.[facility] [employer] Allergies No known active allergies Medications * [...] (FLONASE) 50 MCG/ACT nasal sprayIndications:Jimmy opharyngitis acute [place] 2 sprays into each nostril once daily 1 bottles 06/26/2018 Active Active Problems No known active problems Immunizations Name Administration Dates Next Due Bablic primary monoval ent 12+ yr 0.3mL Purple [...] Comments Blood Pressure 114/68 06/26/2018 6:21 PM INTERVENTIONAL PAIN PHYSICIAN Pulse 84 06/26/2018 6:21 PM INTERVENTIONAL PAIN PHYSICIAN Temperature 37 C (98.6 F) 06/26/2018 6:21 PM INTERVENTIONAL PAIN PHYSICIAN Respiratory Rate 16 06/26/2018 6:21 PM INTERVENTIONAL PAIN PHYSICIAN Oxygen Saturation 98% 06/26/2018 6:21 PM INTERVENTIONAL PAIN PHYSICIAN Inhaled Oxygen Concentration - - Weight 60.3 kg (133 lb) 06/26/2018 6:21 PM INTERVENTIONAL PAIN PHYSICIAN Height 154.9 cm (5' 1 ) 06/26/2018 6:21 PM INTERVENTIONAL PAIN PHYSICIAN Body Mass Index 25.13 06/26/2018 6:21 PM INTERVENTIONAL PAIN PHYSICIAN Plan of Treatment Not on file Administered Medications Care Teams Registered Nurse Cardiac Telemetry Relationship Specialty Start Date End Date José Antonio Domingo DO PCP - General Family Medicine 11/06/12
--- OUTSIDE RECORDS SUMMARY | 2024-09-02 14:40 | XMS_ITS | Clinical Summary ---
Author Organization [facility] [employer] Address [address] [address] [facility] [place] [address] Care Team Providers Care Pretzel Packer Name Role Phone José Antonio Domingo Primary Care Provider [phone] Source Comments [facility] [employer],non-owned Affiliates and Associated Physician Practices is amultiple site organization consisting of ambulatory clinics and hospital sitesin [place], [place], [place] and [place]. This disclosure is being madepursuant to the Care Everywhere program and may not contain all information available regarding this patient. Last updated 18.[facility] [employer] Allergies No known active allergies Medications * [...] (FLONASE) 50 MCG/ACT nasal sprayIndications:Jimmy opharyngitis acute [place] 2 sprays into each nostril once daily 1 bottles 06/26/2018 Active Active Problems No known active problems Immunizations Name Administration Dates Next Due A[employer]us primary monoval ent 12+ yr 0.3mL Purple [...] Comments Blood Pressure 114/68 06/26/2018 6:21 PM GENERAL MERCHANDISE SALESPERSON Pulse 84 06/26/2018 6:21 PM GENERAL MERCHANDISE SALESPERSON Temperature 37 C (98.6 F) 06/26/2018 6:21 PM GENERAL MERCHANDISE SALESPERSON Respiratory Rate 16 06/26/2018 6:21 PM GENERAL MERCHANDISE SALESPERSON Oxygen Saturation 98% 06/26/2018 6:21 PM GENERAL MERCHANDISE SALESPERSON Inhaled Oxygen Concentration - - Weight 60.3 kg (133 lb) 06/26/2018 6:21 PM GENERAL MERCHANDISE SALESPERSON Height 154.9 cm (5' 1 ) 06/26/2018 6:21 PM GENERAL MERCHANDISE SALESPERSON Body Mass Index 25.13 06/26/2018 6:21 PM GENERAL MERCHANDISE SALESPERSON Plan of Treatment Health Maintenance Due Date Last Done Comments PAP SMEAR 1986 HIV SCREENING 2001 HEPATITIS C SCREENING 04/26/2004 HEPATITIS B VACCINE (1 of 3 - 19+ 3-dose series) 2005 COVID-19 VACCINE (2023-2 5 season) 2024 01/05/2021, 12/15/2020 INFLUENZA VACCINE [...] age to complete this topic Care Teams Pretzel Packer Relationship Specialty Start Date End Date José Antonio Domingo DO PCP - General Family Medicine 11/06/12
--- OUTSIDE RECORDS SUMMARY | 2024-09-02 14:40 | XMS_ITS | Patient Health Summary ---
Author Organization [facility] [employer] Address [address] [place] [address] Care Team Providers Care Corporate Investigator Name Role Phone José Antonio Domingo Primary Care Provider [phone] Note from [facility],non-owned Affiliates and Associated Physician Practices is amultiple site organization consisting of ambulatory clinics and hospital sitesin [place], [place], [place] and [place]. This disclosure is being madepursuant to the Care Everywhere program and may not contain all information available regarding this patient. Last updated 18.[facility] Allergies No known active allergies Medications * Be aware that medications may not be up to date on this document. Alwaysverify current medications with the patient. * benzonatate (TESSALON) 200 MG capsule(Started 06/26/2018) Take 1 capsule by mouth 3 times daily as needed for Cough * fluticasone propionate (FLONASE) 50 MCG/ACT nasal spray(Started 06/26/2018) [place] 2 sprays into each nostril once daily Active Problems No known active problems Immunizations * Covid [employer] primary monovalent 12+ yr 0.3mL Purple cap(Given [...] Comments Blood Pressure 114/68 06/26/2018 6:21 PM SENIOR IT BUSINESS ANALYST Pulse 84 06/26/2018 6:21 PM SENIOR IT BUSINESS ANALYST Temperature 37 C (98.6 F) 06/26/2018 6:21 PM SENIOR IT BUSINESS ANALYST Respiratory Rate 16 06/26/2018 6:21 PM SENIOR IT BUSINESS ANALYST Oxygen Saturation 98% 06/26/2018 6:21 PM SENIOR IT BUSINESS ANALYST Inhaled Oxygen Concentration - - Weight 60.3 kg (133 lb) 06/26/2018 6:21 PM SENIOR IT BUSINESS ANALYST Height 154.9 cm (5' 1 ) 06/26/2018 6:21 PM SENIOR IT BUSINESS ANALYST Body Mass Index 25.13 06/26/2018 6:21 PM SENIOR IT BUSINESS ANALYST Procedures * SKIN TEST PPD - POINT [...] Unknown 01/15/2021 4:31 PM CDT Troy Alexandra CASEWORK MANAGER-COST MANAGER LAB - POINT OF CARE ORDERABLES [facility] [address] [phone] * [facility] Throat Culture (06/26/2018 6:44 PM SENIOR IT BUSINESS ANALYST) Upper Respiratory Culture Final report [facility] INSURANCE BILL Result 1 [facility] INSURANCE BILL Comment:Routine respiratory isabel Microbiology ENTIRE THROAT (SURFACE REGION OF NECK) / Unknown 06/26/2018 6:44 PM SENIOR IT BUSINESS ANALYST 06/26/2018 Narrative Resulting Agency Comment [facility] [address] [facility] [phone] Tiesha Stauffer CASEWORK MANAGER-COST MANAGER LAB - MICR OBIOLOGY ORDERABLES [facility] INSURANCE BILL [address] [place] [address] * STREP A SCREEN (06/26/2018 6:40 PM SENIOR IT BUSINESS ANALYST) Strep A Rapid POCT Negative Negative Strep A Internal Control Present Lot # [id number] Expiration Date 11/07/2019 Throat ENTIRE THROAT (SURFACE REGION OF NECK) / Unknown 06/26/2018 6:40 PM SENIOR IT BUSINESS ANALYST Tiesha Donnellyeal CASEWORK MANAGER-COST MANAGER LAB - POIN T OF CARE ORDERABLES * MONONUCLEOSIS SCREEN - POINT OF CARE (AMB) STL (06/26/2018 6:40 PM SENIOR IT BUSINESS ANALYST) Mononucleosis Screen POCT negative NEGATIVE [place] Test Internal Control present [facility] Test Lot# [id number] [facility] Test Exp Date 01/07/2020 Blood BLOOD SPECIMEN / Unknown 06/26/2018 6:40 PM SENIOR IT BUSINESS ANALYST Tiesha Donnellyeal CASEWORK MANAGER-COST MANAGER LAB - POIN T OF CARE ORDERABLES [...] not detected. The heart size is normal. Procedure Note El [...] POINT OF CARE ORDERABLES Performing Organization Address [facility] Co de Phone Number [facility] [address] [place] [address] * HCG URINE QUALITATIVE - POINT OF CARE (IP) (11/06/2012 4:21 PM CDT) HCG Qual Urine negative Negative [facility] QC Verified yes Yes [facility] POC T TESTING Urine specimen (specimen) URINE / Unknown 11/06/2012 4:21 PM CDT Teena [facility] LAB - POINT OF CARE ORDERABLES Performing Organization Address [facility] Co de Phone Number [facility] [address] [place] [address] * STREP A SCREEN DIRECT W RFLX STREP A CULTURE (11/06/2012 3:02 PM CDT) Strep A Rapid Negative Negative 11/06/2012 3:48 PM CDT [facility] Throat swab (specimen) ENTIRE THROAT (SURFACE REGION OF NECK) / Unknown 11/06/2012 3:02 PM CDT 11/06/2012 3:35 PM CDT Teena [facility] LAB - MICROBIOLOGY O RDERABLES [facility] [address] [place] [address] Care Teams Corporate Investigator Relationship Specialty Start Date End Date José Antonio Domingo DO PCP - General Family Medicine 11/06/12
--- OUTSIDE RECORDS SUMMARY | 2024-09-02 14:41 | XMS_ITS | Clinical Summary ---
Author Organization [facility] Address [address] [place] [address] Care Team Providers Care Crown Presser Name Role Phone José Antonio Domingo DO Primary Care Provider [phone] Allergies No known active allergies Medications norelgestromin-eth [...] Group B streptococcal bacteriuria 10/20/2017 11/08/2017 Immunizations Immunization Administration Dates Next Due Tdap 11/08/2017 Surgical [...] on file Legal Sex Female 3:10 AM DISTILLATION OPERATOR HELPER Gender Identity Female 11/28/2019 2:13 AM CDT [...] muñoz, Dae Bosch MD Complications:None Delivery Location:This [facility] ([facility] Last Filed Vital Signs Vital Sign Reading Time Taken Comments Blood Pressure 110/64 11/28/2019 1:34 PM CDT Pulse 76 05/18/2018 12:03 PM DISTILLATION OPERATOR HELPER Temperature 36.7 C (98.1 F) 11/28/2019 1:34 PM CDT Respiratory Rate 18 11/11/2017 6:50 AM CDT Oxygen Saturation 100% 11/09/2017 11:00 PM CDT Inhaled Oxygen Concentration - - Weight 60.3 kg (133 lb) 11/28/2019 1:34 PM CDT Height 154.9 cm (5' 1 ) 11/28/2019 1:34 PM CDT Body Mass Index 25.13 11/28/2019 1:34 PM CDT Plan of Treatment Not on file Insurance [facility] Advance Directives For more information, please contact: [phone] * Full Code (Latest Code Status on [...] ca se of cardiopulmonary arrest Care Teams Crown Presser Relationship Specialty Start Date End Date José Antonio Domingo DO [address] [place] [address] PCP - General Family Medicine 04/09/18
--- OUTSIDE RECORDS SUMMARY | 2024-09-02 14:41 | XMS_ITS | Encounter Summary ---
Author Organization [employer] [facility] Address [address] [place] [address] Care Team Providers Care Frame Aligner Name Role Phone Brayan Domingon Gloria Primary Care Provider [phone] Encounter Details Date Type Department Care Team (Latest Contact Info) Description 07/08/2008 Outpatient Historical [facility] [place] [address] [place] [address] Twin , Antepartum Social History Tobacco Use Types Packs/Day Years Used Date Smoking Tobacco: Never Assessed Comments Unknown Sex and Gender Information Value Date Recorded Sex Assigned at Not on file Legal Sex Female 5:23 AM SUPERVISOR MAINTENANCE AND CUSTODIANS Gender Identity Not on file Sexual Orientation Not on file documented as of this encounter Plan of Treatment Not on file documented as of this encounter Procedures Procedure Name Priority Date/Time Associated Diagnosis Comments US BIOPHYSICAL PROF WO NST Timed Study 08/04/2008 1:59 PM SUPERVISOR MAINTENANCE AND CUSTODIANS US BIOPHYSICAL PROF WO NST Timed Study 07/29/2008 8:38 AM SUPERVISOR MAINTENANCE AND CUSTODIANS US OB LTD 1 OR MORE FETUSES Timed Study 07/14/2008 3:37 PM SUPERVISOR MAINTENANCE AND CUSTODIANS documented in this encounter Results * US BIOPHYSICAL PROF WO NST (08/04/2008 1:59 PM SUPERVISOR MAINTENANCE AND CUSTODIANS) Anatomical Region Laterality Modality Pelvis Other Narrative 08/04/2008 1:59 PM SUPERVISOR MAINTENANCE AND CUSTODIANS Results in [employer] Procedure Note 01/15/2009 Results in [employer] Paulette Nathan MD US ORDERABLES Final Result * US BIOPHYSICAL PROF WO NST (07/29/2008 8:38 AM SUPERVISOR MAINTENANCE AND CUSTODIANS) Anatomical Region Laterality Modality Pelvis Other Narrative 07/29/2008 8:38 AM SUPERVISOR MAINTENANCE AND CUSTODIANS Results in [employer] Procedure Note 01/15/2009 Results in [employer] Paulette Nathan MD US ORDERABLES Final Result * US OB LTD 1 OR MORE FETUSES (07/14/2008 3:37 PM SUPERVISOR MAINTENANCE AND CUSTODIANS) Anatomical Region Laterality Modality Pelvis Other Narrative 07/14/2008 3:37 PM SUPERVISOR MAINTENANCE AND CUSTODIANS Results in [employer] Procedure Note 01/15/2009 Results in [employer] Paulette Nathan MD US ORDERABLES Final Result documented in this encounter Visit Diagnoses Diagnosis Twin , antepartum documented in this encounter Care Teams Frame Aligner Relationship Specialty Start Date End Date José Antonio Domingo DO PCP - General 06/24/15 documented as of this encounter
--- OUTSIDE RECORDS SUMMARY | 2024-09-02 14:41 | XMS_ITS | Encounter Summary ---
Author Organization [facility] Address [address] [place] [address] Care Team Providers Care Dispensary Technician Name Role Phone Brayan Domingon Gloria Primary Care Provider [phone] Encounter Details Date Type Department Care Team (Late st Contact Info) Description 05/13/2008 Outpatient Historical [facility], Authorized P NO ADDRESS ON FILE Manish Galdamez DO [address] [facility] [address] [place] [address] Social History Tobacco Use Types Packs/Day Years Used Date Smoking Tobacco: Never Assessed Comments Unknown Sex and Gender Information Value Date Recorded Sex Assigned at Not on file Legal Sex Female 5:23 AM SUPERVISOR CAPACITOR PROCESSING Gender Identity Not on file Sexual Orientation Not on file documented as of this encounter Plan of Treatment Not on file documented as of this encounter Procedures Procedure Name Priority Date/Time Associated Diagnosis Comments STREP SCREEN GROUP A W/CULTURE Stat 05/13/2008 3:30 AM SUPERVISOR CAPACITOR PROCESSING CBC WITH DIFFERENTIAL Stat 05/13/2008 3:30 AM SUPERVISOR CAPACITOR PROCESSING COMPREHENSIVE METABOLIC PANEL Stat 05/13/2008 3:30 AM SUPERVISOR CAPACITOR PROCESSING documented in this encounter Results * (ABNORMAL) CBC WITH DIFFERENTIAL (05/13/2008 3:30 AM SUPERVISOR CAPACITOR PROCESSING) MPV 10.0 9.3 - 12.4 fL [facility] HEMATOCRIT 31.7(L) 35.5 - 44.0 % [facility] RDW-STDEV 41.9 37.1 - 48.7 fL [facility] RBC 3.74(L) 3.90 - 4.90 M/uL [facility] MCHC 33.8 31.5 - 35.5 % [facility] MCV 84.8 82.0 - 99.0 fL [facility] PLATELETS 243 140 - 350 K/uL [facility] HEMOGLOBIN 10.7(L) 11.8 - 14.8 g/dL [facility] RDW 13.8 11.5 - 14.5 % [facility] WBC 8.6 4.0 - 9.8 K/uL [facility] MCH 28.6 27.2 - 32.6 pg [facility] BASOPHILS 0 0 - 2 % [facility] BASOPHILS ABSOLUTE 0.01 0.00 - 0.20 K/uL [facility] MONOCYTES 8 3 - 13 % [facility] MONOCYTE ABSOLUTE 0.65 0.10 - 1.30 K/uL [facility] NEUTROPHILS 78(H) 45 - 70 % [facility] NEUTROPHIL ABSOLUTE 6.70 1.90 - 7.00 K/uL [facility] EOSINOPHILS 0 0 - 7 % [facility] EOSINOPHIL ABSOLUTE 0.01 0.00 - 0.70 K/uL [facility] LYMPHOCYTES 14(L) 16 - 45 % [facility] LYMPHOCYTE ABSOLUTE 1.23 0.70 - 4.50 K/uL [facility] Blood specimen (specimen) 05/13/2008 3:30 AM SUPERVISOR CAPACITOR PROCESSING 05/13/2008 3:40 AM SUPERVISOR CAPACITOR PROCESSING us Manish Galdamez DO HEMATOLOGY ORDERABLES Edited INTERFACE SYSTEM Refer to clinic/hospital department [facility] CLIA# [id number] [address] [place] [address] * STREP SCREEN GROUP A W/CULTURE (05/13/2008 3:30 AM SUPERVISOR CAPACITOR PROCESSING) PRELIMINARY REPORT Negative: Group A Strep Screen - Phoned report (with read back verified) to Anastasia in ER 05/13/08 3:53 AM [facility] FINAL REPORT Negative: Group A Strep Screen - Phoned report (with read back verified) to Anastasia in ER 05/13/08 3:53 AM Negative screen result was confirmed by culture. [facility] Specimen from throat (specimen) 05/13/2008 3:30 AM SUPERVISOR CAPACITOR PROCESSING 05/13/2008 3:43 AM SUPERVISOR CAPACITOR PROCESSING Manish Galdamez DO MICROBIOLOGY - GENERAL ORDER ROMULO Final Result Performing Organization Address [facility] de Phone Number INTERFACE SYSTEM Refer to clinic/hospital department [facility] CLIA# [id number] [address] [place] [address] * (ABNORMAL) COMPREHENSIVE METABOLIC PANEL (05/13/2008 3:30 AM SUPERVISOR CAPACITOR PROCESSING) SODIUM 136 135 - 145 mmol/L [facility] ALKALINE PHOSPHATASE 45 35 - 104 U/L [facility] CO2 21(L) 22 - 30 mmol/L [facility] BILIRUBIN TOTAL 0.2 0.2 - 1.0 mg/dL [facility] POTASSIUM 3.2(L) 3.5 - 4.9 mmol/L [facility] TOTAL PROTEIN 7.0 6.3 - 8.6 g/dL [facility] GLUCOSE 86 65 - 99 mg/dL [facility] AST 20 12 - 32 U/L [facility] BUN 6 6 - 20 mg/dL [facility] CALCIUM 8.9 8.6 - 10.2 mg/dL [facility] ALBUMIN 3.8 3.4 - 4.8 g/dL [facility] CHLORIDE 103 96 - 108 mmol/L [facility] CREATININE 0.56 0.51 - 0.95 mg/dL [facility] ALT 9 0 - 31 U/L [facility] GFR, >60 >=60 mL/min/1. 7 sq meter [facility] GFR >60 >=60 mL/min/1. 7 sq meter [facility] Comment: Modification of Diet in Renal Disease (MDRD) study formula. Estimated GFR rate interpretative information for both Americans and non- Americans is available on the [facility] Intranet at: [email or web address] for [email or web address] Medical/[email or web address] Select: Lab Policies and Procedures Select: Reference Ranges - GFR Blood specimen (specimen) 05/13/2008 3:30 AM SUPERVISOR CAPACITOR PROCESSING 05/13/2008 3:40 AM SUPERVISOR CAPACITOR PROCESSING Manish Galdamez DO CHEMISTRY ORDERABLES Edited INTERFACE SYSTEM Refer to clinic/hospital department [facility] CLIA# [id number] [address] [place] [address] documented in this encounter Visit Diagnoses Not on filedocumented in this encounter Care Teams Dispensary Technician Relationship Specialty Start Date End Date José Antonio Domingo DO PCP - General 06/24/15 documented as of this encounter
--- OUTSIDE RECORDS SUMMARY | 2024-09-02 14:41 | XMS_ITS | Encounter Summary ---
Author Organization [employer] [facility] Address [address] [place] [address] Care Team Providers Care Clinic Md Associate Name Role Phone José Antonio Domingo DO Primary Care Provider [phone] Encounter Details Date Type Department Care Team (Latest Contact Info) Description 10/07/2008 Outpatient Historical [facility] [place] [address] [place] [address] Twin , Antepartum Social History Tobacco Use Types Packs/Day Years Used Date Smoking Tobacco: Never Assessed Comments Unknown Sex and Gender Information Value Date Recorded Sex Assigned at Not on file Legal Sex Female 5:23 AM SAFETY ADVISOR Gender Identity Not on file Sexual Orientation Not on file documented as of this encounter Plan of Treatment Not on file documented as of this encounter Visit Diagnoses Diagnosis Twin , antepartum documented in this encounter Care Teams Clinic Md Associate Relationship Specialty Start Date End Date José Antonio Domingo DO PCP - General 06/24/15 documented as of this encounter
--- OUTSIDE RECORDS SUMMARY | 2024-09-02 14:41 | XMS_ITS | Encounter Summary ---
Author Organization [employer] [facility] Address [address] [place] [address] Care Team Providers Care Geriatric Nurse Name Role Phone José Antonio Dmoingo DO Primary Care Provider [phone] Encounter Details Date Type Department Care Team (Latest Contact Info) Description 05/06/2008 Outpatient Historical [place] [address] [place] [address] Twin , Antepartum Social History Tobacco Use Types Packs/Day Years Used Date Smoking Tobacco: Never Assessed Comments Unknown Sex and Gender Information Value Date Recorded Sex Assigned at Not on file Legal Sex Female 5:23 AM MACHINE TRY OUT SETTER Gender Identity Not on file Sexual Orientation [...] Procedure Note 01/15/2009 Results in [employer] Paulette Nahtan MD ORDERABLES Final Result documented in this encounter Visit Diagnoses Diagnosis Twin , antepartum documented in this encounter Care Teams Geriatric Nurse Relationship Specialty Start Date End Date José Antonio Domingo DO PCP - General 06/24/15 documented as of this encounter
--- OUTSIDE RECORDS SUMMARY | 2024-09-02 14:41 | XMS_ITS | Referral Summary ---
Author Organization [facility] Medical [facility] Building B Address [address] [place] [address] Care Team Providers Care Lead Technologist In Cytogenetics Name Role Phone Chayo José Antonio Coats DO Primary Care Provider [phone] Allergies No known active allergies Medications norelgestromin-eth [...] Immunization Administration Dates Next Due Tdap 11/08/2017 Social History Tobacco Use Types Packs/Day Years Used Date Smoking Tobacco: Never Smokeless Tobacco: Never Alcohol Use Standard Drinks/Week Comments No 0 (1 standard drink = 0.6 oz pur e alcohol) Comments No Sex and Gender Information Value Date Recorded Sex Assigned at Not on file Legal Sex Female 3:10 AM CORE RESCUER Gender Identity Female 11/28/2019 2:13 AM CDT Sexual Orientation Straight 11/28/2019 2: 13 AM CDT Last Filed Vital Signs Vital Sign Reading Time Taken Comments Blood Pressure 110/64 11/28/2019 1:34 PM CDT Pulse 76 05/18/2018 12:03 PM CORE RESCUER Temperature 36.7 C (98.1 F) 11/28/2019 1:34 [...] Advance Directives For more information, please contact: [phone] * Full Code (Latest Code Status on [...] ca se of cardiopulmonary arrest Care Teams Lead Technologist In Cytogenetics Relationship Specialty Start Date End Date José Antonio Domingo, [address] [place] [address] PCP - General Family Medicine 04/09/18
--- OUTSIDE RECORDS SUMMARY | 2024-09-02 14:41 | XMS_ITS | Encounter Summary ---
Author Organization [employer] Address [address] [place] [address] Care Team Providers Care Key Sander Name Role Phone Brayan Domingon Gloria Primary Care Provider [phone] Encounter Details Date Type Department Care Team (Latest Contact Info) Description 08/09/2008 Outpatient Historical [facility] [place] [address] [place] [address] Twin , Antepartum Social History Tobacco Use Types Packs/Day Years Used Date Smoking Tobacco: Never Assessed Comments Unknown Sex and Gender Information Value Date Recorded Sex Assigned at Not on file Legal Sex Female 5:23 AM SAND CAR WORKER Gender Identity Not on file Sexual Orientation Not on file documented as of this encounter Plan of Treatment Not on file documented as of this encounter Procedures Procedure Name Priority Date/Time Associated Diagnosis Comments US BIOPHYSICAL PROF WO NST Timed Study 09/01/2008 10:46 AM SAND CAR WORKER US BIOPHYSICAL PROF WO NST Timed Study 08/25/2008 11:25 AM SAND CAR WORKER US OB LTD 1 OR MORE FETUSES Timed Study 08/11/2008 10:14 AM SAND CAR WORKER US BIOPHYSICAL PROF W NST Timed Study 08/11/2008 10:14 AM SAND CAR WORKER documented in this encounter Results * US BIOPHYSICAL PROF WO NST (09/01/2008 10:46 AM SAND CAR WORKER) Anatomical Region Laterality Modality Pelvis Other Narrative 09/01/2008 10:46 AM SAND CAR WORKER Results in [employer] Procedure Note 01/15/2009 Results in [employer] Paulette Nathan MD US ORDERABLES Final Result * US BIOPHYSICAL PROF WO NST (08/25/2008 11:25 AM SAND CAR WORKER) Anatomical Region Laterality Modality Pelvis Other Narrative 08/25/2008 11:25 AM SAND CAR WORKER Results in [employer] Procedure Note 01/15/2009 Results in [employer] Paulette Nathan MD US ORDERABLES Final Result * US BIOPHYSICAL PROF WO NST (08/18/2008 9:34 AM SAND CAR WORKER) Anatomical Region Laterality Modality Pelvis Other Narrative Procedure Note 01/15/2009 Results in [employer] Paulette Nathan MD US ORDERABLES Final Result * US OB LTD 1 OR MORE FETUSES (08/11/2008 10:14 AM SAND CAR WORKER) Anatomical Region Laterality Modality Pelvis Other Narrative 08/11/2008 10:14 AM SAND CAR WORKER Results in [employer] Procedure Note 01/15/2009 Results in [employer] Paulette Nathan MD US ORDERABLES Final Result * US BIOPHYSICAL PROFILE (08/11/2008 10:14 AM SAND CAR WORKER) Anatomical Region Laterality Modality Pelvis Other Narrative 08/11/2008 10:14 AM SAND CAR WORKER Results in [employer] Procedure Note 01/15/2009 Results in [employer] Paulette Nathan MD US ORDERABLES Final Result documented in this encounter Visit Diagnoses Diagnosis Twin , antepartum documented in this encounter Care Teams Key Sander Relationship Specialty Start Date End Date José Antonio Domingo DO PCP - General 06/24/15 documented as of this encounter
--- OUTSIDE RECORDS SUMMARY | 2024-09-02 14:41 | XMS_ITS | Encounter Summary ---
Author Organization [facility] Address [address] [place] [address] Care Team Providers Care Senior Game Designer Name Role Phone José Antonio Domingo DO Primary Care Provider [phone] Encounter Details Date Type Department Care Team (Latest Contact Info) Description 06/07/2008 Outpatient Historical [facility] [place] [address] [place] [address] Twin , Antepartum Social History Tobacco Use Types Packs/Day Years Used Date Smoking Tobacco: Never Assessed Comments Unknown Sex and Gender Information Value Date Recorded Sex Assigned at Not on file Legal Sex Female 5:23 AM PERSONAL CARE ASSISTANT Gender Identity Not on file Sexual Orientation Not on file documented as of this encounter Plan of Treatment Not on file documented as of this encounter Visit Diagnoses Diagnosis Twin , antepartum documented in this encounter Care Teams Senior Game Designer Relationship Specialty Start Date End Date José Antonio Domingo DO PCP - General 06/24/15 documented as of this encounter
--- OUTSIDE RECORDS SUMMARY | 2024-09-02 14:41 | XMS_ITS | Encounter Summary ---
Author Organization [facility] Address [address] [place] [address] Care Team Providers Care Washer Engineer Helper Name Role Phone Brayan Domingon Gloria Primary Care Provider [phone] Encounter Details Date Type Department Care Team (Late st Contact Info) Description 07/07/2008 Outpatient Historical [place] [address] [place] [address] Normal Delivery Social History Tobacco Use Types Packs/Day Years Used Date Smoking Tobacco: Never Assessed Comments Unknown Sex and Gender Information Value Date Recorded Sex Assigned at Not on file Legal Sex Female 5:23 AM PRIMARY CARE PROVIDER Gender Identity Not on file Sexual Orientation Not on file documented as of this encounter Plan of Treatment Not on file documented as of this encounter Procedures Procedure Name Priority Date/Time Associated Diagnosis Comments TYPE AND SCREEN Routine 09/04/2008 6:57 PM PRIMARY CARE PROVIDER CBC WITH DIFFERENTIAL Stat 09/04/2008 6:44 PM PRIMARY CARE PROVIDER PATHOLOGY Routine 09/04/2008 5:00 PM PRIMARY CARE PROVIDER documented in this encounter Results * TYPE AND SCREEN (09/04/2008 6:57 PM PRIMARY CARE PROVIDER) HISTORY CHECK No Historical ABO/Rh [facility] SPECIMEN LIFE 3 days from drawdate [facility] ABO/RH TYPE A Positive [facility] ANTIBODY SCREEN Negative [facility] Blood specimen (specimen) 09/04/2008 6:57 PM PRIMARY CARE PROVIDER Mio Sosa MD BLOOD BANK ORDERABLES Edited INTERFACE SYSTEM Refer to clinic/hospital department [facility] CLIA# [id number] [address] [place] [address] * (ABNORMAL) CBC WITH DIFFERENTIAL (09/04/2008 6:44 PM PRIMARY CARE PROVIDER) WBC 9.7 4.0 - 9.8 K/uL [facility] MCH 28.7 27.2 - 32.6 pg [facility] MPV 11.6 9.3 - 12.4 fL [facility] HEMATOCRIT 35.3(L) 35.5 - 44.0 % [facility] RDW-STDEV 45.0 37.1 - 48.7 fL [facility] RBC 4.22 3.90 - 4.90 M/uL [facility] MCHC 34.3 31.5 - 35.5 % [facility] MCV 83.6 82.0 - 99.0 fL [facility] PLATELETS 185 140 - 350 K/uL [facility] HEMOGLOBIN 12.1 11.8 - 14.8 g/dL [facility] RDW 14.7(H) 11.5 - 14.5 % [facility] LYMPHOCYTES 35 16 - 45 % [facility] LYMPHOCYTE ABSOLUTE 3.36 0.70 - 4.50 K/uL [facility] BASOPHILS 0 0 - 2 % [facility] BASOPHILS ABSOLUTE 0.01 0.00 - 0.20 K/uL [facility] MONOCYTES 10 3 - 13 % [facility] MONOCYTE ABSOLUTE 1.01 0.10 - 1.30 K/uL [facility] NEUTROPHILS 55 45 - 70 % [facility] NEUTROPHIL ABSOLUTE 5.30 1.90 - 7.00 K/uL [facility] EOSINOPHILS 0 0 - 7 % [facility] EOSINOPHIL ABSOLUTE 0.02 0.00 - 0.70 K/uL [facility] Blood specimen (specimen) 09/04/2008 6:44 PM PRIMARY CARE PROVIDER 09/04/2008 7:04 PM PRIMARY CARE PROVIDER us Mio Sosa MD HEMATOLOGY ORDERABLES Edited INTERFACE SYSTEM Refer to clinic/hospital department [facility] CLIA# [id number] [address] [place] [address] * PATHOLOGY (09/04/2008 5:00 PM PRIMARY CARE PROVIDER) FINAL REPORT [address] [address] Patient: ROSA HERCULES : 1985 Procedure Date: 09/04/2008 Accession Date: 09/05/2008 Case No: [id number] Ordering Dr: MIO SOSA Case types AW, BW, FW, NW and SH are performed by [facility], [place], [place] SURGICAL PATHOLOGY & NON-GYNECOLOGIC CYTOPATHOLOGY REPORT DIAGNOSIS PLACENTA, SECTION: - DIAMNIONIC, DICHORIONIC, FUSED TWIN PLACENTAS. MEMBRANES, DOMAINS 1 AND 2, SECTION: - NO PATHOLOGIC DIAGNOSIS. UMBILICAL CORDS, DOMAINS 1 AND 2, SECTION: - NO PATHOLOGIC DIAGNOSIS. Specimen Description: Placenta and cord. Operative Procedure: Primary section. Patient Information/Histor y/Diagnosis: Twin intrauterine at 38-1/7 weeks. Gross: The specimen is received in a container labeled DiomedesRosa and twins, A equals one, B equals two, no micro ordered and consists of fused twin placentas with a total weight of 819 g and measuring 31.8 x 23.3 x up to 1.5 cm. The placenta with one cord clamp has been designated Baby A and the cord with two clamps has been designated Baby B. The dividing membrane is consistent with a dichorionic, diamnionic twin gestation. The placenta of baby A measures 15.3 x 23 x up to 1.5 cm. The attached trivascular umbilical cord attaches paracentrally 8 cm from the closest placental margin and measures 34.5 x up to 2 cm. Additionally received is a detached portion of umbilical cord that measures 10.5 x up to 2.5 cm. The membranes attach at the margin and have ruptured 2 cm from the margin. The surface is blue-mera and has tortuous vessels coursing beneath the chorion. The maternal surface is red-mera with intact cotyledons and no deforming or adherent clot. Sectioning of the placental reveals beefy red, spongy cut surfaces with no lesions identified. Reservoir Engineering Manager sections are submitted as follows: A1-umbilical cord and membranes; A2 through A4-contracts representative sections of central parenchyma; A5-dividing membranes. The placenta of baby B measures 16.5 x 23.3 x up to 1.5 cm. The trivascular umbilical cord attaches paracentrally 7 cm from the closest placental margin and measures 47.7 x 1.1 cm. Additionally received is a detached portion of umbilical cord that measures 4 x 1.8 cm. The membranes insert at the margin and have ruptured 4.7 cm from the margin. The surface is blue-mear with tortuous vessels coursing beneath the chorion. The maternal surface is red-mera with intact cotyledons and no lesions identified. Serial sectioning reveals beefy red, spongy parenchyma with no lesions identified. Reservoir Engineering Manager sections are submitted as follows: B1- umbilical cord and membranes; B2 through B4-contracts representative sections of central parenchyma. OEMILIE/GIAN 09.06.2008 12:17 pm Microscopic: The slides are labeled [id number], Rosa Hercules. The villous morphology and recorded placental weights are appropriate for a 30-week gestation. The dividing membranes consist of 2 layers of amnion with intervening chorion, typical of diamnionic, dichorionic placentation. No parenchymal abnormalities are identified in either disc. There is no evidence of inflammation involving the membranes or either umbilical cord. VLADIMIRF/SRINIVASAN 09.08.2008 04:21 pm Staging Form: No. ELECTRONIC SIGNATURE FOR JEN ZHOU M.D.- 09/08/08 05:17 pm INTERFACE SYSTEM 09/04/2008 5:00 PM PRIMARY CARE PROVIDER us Mio Sosa MD PATHOLOGY/CYTOLOGY ORDERABLES Final Result INTERFACE SYSTEM Refer to clinic/hospital department documented in this encounter Visit Diagnoses Diagnosis Normal delivery documented in this encounter Care Teams Washer Engineer Helper Relationship Specialty Start Date End Date José Antonio Domingo DO PCP - General 06/24/15 documented as of this encounter
--- OUTSIDE RECORDS SUMMARY | 2024-09-02 14:41 | XMS_ITS | Encounter Summary ---
Author Organization [facility] Address [address] [place] [address] Care Team Providers Care Snack Bar Cook Name Role Phone José Antonio Domingo DO Primary Care Provider [phone] Encounter Details Date Type Department Care Team (Late st Contact Info) Description 02/15/1999 Outpatient [facility] Primary Care - [address] [place] [address] José Antonio Domingo DO Social History Tobacco Use Types Packs/Day Years Used Date Smoking Tobacco: Never Assessed Comments Unknown Sex and Gender Information Value Date Recorded Sex Assigned at Not on file Legal Sex Female 5:23 AM DIRECTOR SCRIPT Gender Identity Not on file Sexual Orientation Not on file documented as of this encounter Plan of Treatment Not on file documented as of this encounter Visit Diagnoses Not on filedocumented in this encounter Care Teams Snack Bar Cook Relationship Specialty Start Date End Date José Antonio Domingo DO PCP - General 06/24/15 documented as of this encounter
--- OUTSIDE RECORDS SUMMARY | 2024-09-02 14:41 | XMS_ITS | Encounter Summary ---
Author Organization [employer] [facility] Address [address] [place] [address] Care Team Providers Care General Hardware Salesperson Name Role Phone José Antonio Domingo DO Primary Care Provider [phone] Encounter Details Date Type Department Care Team (Late st Contact Info) Description 06/27/2008 Inpatient Historical [facility] [place] [address] [place] [address] Laura Hector MD NO ADDRESS ON FILE Social History Tobacco Use Types Packs/Day Years Used Date Smoking Tobacco: Never Assessed Comments Unknown Sex and Gender Information Value Date Recorded Sex Assigned at Not on file Legal Sex Female 5:23 AM OUTPATIENT INTERVIEWING CLERK Gender Identity Not on file Sexual Orientation Not on file documented as of this encounter Plan of Treatment Not on file documented as of this encounter Procedures Procedure Name Priority Date/Time Associated Diagnosis Comments BACTERIAL VAGINOSIS STAIN Stat 06/27/2008 6:42 PM OUTPATIENT INTERVIEWING CLERK GC/CHLAMYDIA, GENITAL Stat 06/27/2008 6:42 PM OUTPATIENT INTERVIEWING CLERK (BROTH-ENRICHED) GROUP B STREP DETECTION Stat 06/27/2008 6:42 PM OUTPATIENT INTERVIEWING CLERK FIBRONECTIN Stat 06/27/2008 6:4 2 PM OUTPATIENT INTERVIEWING CLERK CBC WITH DIFFERENTIAL Stat 06/27/2008 6:20 PM OUTPATIENT INTERVIEWING CLERK URINALYSIS W/REFLEX MICROSCOPIC Stat 06/27/2008 6:19 PM OUTPATIENT INTERVIEWING CLERK documented in this encounter Results * FIBRONECTIN (06/27/2008 6:42 PM OUTPATIENT INTERVIEWING CLERK) GESTATIONAL AGE [address] [facility] FIBRONECTIN Negative Negative [facility] Vaginal 06/27/2008 6:42 PM OUTPATIENT INTERVIEWING CLERK 06/27/2008 6:52 PM OUTPATIENT INTERVIEWING CLERK Paulette Nathan MD BODY FLUIDS AND STOOLS Final R esult Performing Organization Address [facility] Phone Number INTERFACE SYSTEM Refer to clinic/hospital department [facility] CLIA# [id number] [address] [place] [address] * BACTERIAL VAGINOSIS STAIN (06/27/2008 6:42 PM OUTPATIENT INTERVIEWING CLERK) FINAL REPORT Cells: epithelial cells > WBC's Kane Score = 0 Interpretation : Consistent with normal vaginal isabel [facility] Vaginal 06/27/2008 6:42 PM OUTPATIENT INTERVIEWING CLERK 06/27/2008 7:09 PM OUTPATIENT INTERVIEWING CLERK us Paulette Nathan MD MICROBIOLOGY - GENERAL ORDERAB LES Final Result Performing Organization Address [facility] de Phone Number INTERFACE SYSTEM Refer to clinic/hospital department [facility] CLIA# [id number] [address] [place] [address] * STREPTOCOCCUS GROUP B CULTURE (06/27/2008 6:42 PM OUTPATIENT INTERVIEWING CLERK) PRELIMINARY REPORT Pending [facility] FINAL REPORT No Streptococcus Group B isolated. [facility] 06/27/2008 6:42 PM OUTPATIENT INTERVIEWING CLERK 06/27/2008 7:09 PM OUTPATIENT INTERVIEWING CLERK us Paulette Nathan MD MICROBIOLOGY - GENERAL ORDERAB LES Final Result Performing Organization Address City/[facility] Co de Phone Number INTERFACE SYSTEM Refer to clinic/hospital department [facility] CLIA# [id number] [address] [place] [address] * GC AND CHLAMYDIA PROBE (06/27/2008 6:42 PM OUTPATIENT INTERVIEWING CLERK) FINAL REPORT No Neisseria gonorrhoeae detected. No Chlamydia trachomatis detected. [facility] Endocervical 06/27/2008 6:42 PM OUTPATIENT INTERVIEWING CLERK 06/27/2008 7:09 PM OUTPATIENT INTERVIEWING CLERK Narrative INTERFACE SYSTEM - 06/30/2008 2:59 PM OUTPATIENT INTERVIEWING CLERK All identification methods for Chlamydia trachomatis and Neisseria gonorrhoeae can yield false positive results. In circumstances where diagnosis could lead to adverse psychosocial impacts, additional testing is recommended. A negative test result does not exclude infection. Consultation with the lab is recommended whenever the test result is negative and the clinical indications strongly suggest Chlamydial or Gonorrhoeal infection. Culture is the only recommended procedure for diagnosing Chlamydial or Gonorrhoeal infection in cases of suspected child abuse. Paulette Nathan MD [employer] Result INTERFACE SYSTEM Refer to clinic/hospital department [facility] CLIA# [id number] [address] [place] [address] * (ABNORMAL) CBC WITH DIFFERENTIAL (06/27/2008 6:20 PM OUTPATIENT INTERVIEWING CLERK) WBC 9.3 4.0 - 9.8 K/uL [facility] MCH 28.5 27.2 - 32.[address] [facility] MPV 10.2 9.3 - 12.[address] [facility] HEMATOCRIT 30.5(L) 35.5 - 44.0 % [facility] RDW-STDEV 43.6 37.1 - 48.[address] [facility] RBC 3.54(L) 3.90 - 4.90 M/uL [facility] MCHC 33.1 31.5 - 35.5 % [facility] MCV 86.2 82.0 - 99.[address] [facility] PLATELETS 186 140 - 350 K/uL [facility] HEMOGLOBIN 10.1(L) 11.8 - 14.8 g/dL [facility] RDW 13.9 11.5 - 14.5 % [facility] LYMPHOCYTES 39 16 - 45 % [facility] MONOCYTE ABSOLUTE 0.72 0.10 - 1.30 K/uL [facility] LYMPHOCYTE ABSOLUTE 3.60 0.70 - 4.50 K/uL [facility] BASOPHILS 0 0 - 2 % [facility] MONOCYTES 8 3 - 13 % [facility] NEUTROPHILS 53 45 - 70 % [facility] NEUTROPHIL ABSOLUTE 4.94 1.90 - 7.00 K/uL [facility] EOSINOPHILS 1 0 - 7 % [facility] BASOPHILS ABSOLUTE 0.01 0.00 - 0.20 K/uL [facility] EOSINOPHIL ABSOLUTE 0.05 0.00 - 0.70 K/uL [facility] Blood specimen (specimen) 06/27/2008 6:20 PM OUTPATIENT INTERVIEWING CLERK 06/27/2008 6:25 PM OUTPATIENT INTERVIEWING CLERK us Paulette Nathan MD HEMATOLOGY ORDERABLES Edited INTERFACE SYSTEM Refer to clinic/hospital department [facility] CLIA# [id number] [address] [place] [address] * (ABNORMAL) URINALYSIS (06/27/2008 6:19 PM OUTPATIENT INTERVIEWING CLERK) COLOR UA Yellow [facility] NITRITE UA Negative Negative [facility] EPITHELIAL CELLS, URINE 2-5 /HPF [facility] UROBILINOGEN UA 2(H) <=1 mg/dL [facility] PH UA 7.0 5.0 - 8.0 [facility] WBC UA 2 0 - 5 /HPF [facility] KETONES UA Negative Negative [facility] CLARITY UA Slt. Cloudy(A) Clear [facility] BILIRUBIN UA Negative Negative [facility] PROTEIN UA Trace(A) Negative [facility] LEUKOCYTE ESTERASE UA Negative Negative [facility] RBC UA 1 0 - 4 /HPF [facility] [place] [place] SPECIFIC GRAVITY UA 1.016 1.001 - 1.035 [facility] GLUCOSE UA Negative Negative [facility] [place] [place] BLOOD UA Negative Negative [facility] Urine specimen (specimen) 06/27/2008 6:19 PM OUTPATIENT INTERVIEWING CLERK 06/27/2008 6:21 PM OUTPATIENT INTERVIEWING CLERK us Paulette Nathan MD URINE ORDERABLES Final Result Performing Organization Address City/State/[facility] Co de Phone Number INTERFACE SYSTEM Refer to clinic/hospital department [facility] CLIA# [id number] [address] [place] [address] documented in this encounter Visit Diagnoses Not on filedocumented in this encounter Care Teams General Hardware Salesperson Relationship Specialty Start Date End Date José Antonio Domingo DO PCP - General 06/24/15 documented as of this encounter
--- OUTSIDE RECORDS SUMMARY | 2024-09-02 14:41 | XMS_ITS | Encounter Summary ---
Author Organization [employer] [facility] Address [address] [place] [address] Care Team Providers Care Automobile Sales Representative Name Role Phone José Antonio Domingo DO Primary Care Provider [phone] Encounter Details Date Type Department Care Team (Latest Contact Info) Description 03/03/2008 Outpatient Historical [place] [address] [place] [address] Twin , Antepartum Social History Tobacco Use Types Packs/Day Years Used Date Smoking Tobacco: Never Assessed Comments Unknown Sex and Gender Information Value Date Recorded Sex Assigned at Not on file Legal Sex Female 5:23 AM CUTTER V GROOVE Gender Identity Not on file Sexual Orientation [...] antepartum documented in this encounter Care Teams Automobile Sales Representative Relationship Specialty Start Date End Date José Antonio Domingo DO PCP - General 06/24/15 documented as of this encounter
--- OUTSIDE RECORDS SUMMARY | 2024-09-02 14:41 | XMS_ITS | Encounter Summary ---
Author Organization [employer] [facility] Address [address] [place] [address] Care Team Providers Care Furniture Duster Name Role Phone José Antonio Domingo DO Primary Care Provider [phone] Encounter Details Date Type Department Care Team (Latest Contact Info) Description 09/05/2008 Outpatient Historical [facility] [place] [address] [place] [address] Twin , Antepartum Social History Tobacco Use Types Packs/Day Years Used Date Smoking Tobacco: Never Assessed Comments Unknown Sex and Gender Information Value Date Recorded Sex Assigned at Not on file Legal Sex Female 5:23 AM UNDERWRITING CONSULTANT Gender Identity Not on file Sexual Orientation Not on file documented as of this encounter Plan of Treatment Not on file documented as of this encounter Visit Diagnoses Diagnosis Twin , antepartum documented in this encounter Care Teams Furniture Duster Relationship Specialty Start Date End Date José Antonio Domingo DO PCP - General 06/24/15 documented as of this encounter
--- OUTSIDE RECORDS SUMMARY | 2024-09-02 14:41 | XMS_ITS | Encounter Summary ---
Author Organization [employer] [facility] Address [address] [place] [address] Care Team Providers Care Hospital Chaplain Name Role Phone José Antonio Domingo DO Primary Care Provider Encounter Details Date Type Department Care Team (Latest Contact Info) Description 09/10/2008 Outpatient Historical [facility] [place] [address] [place] [address] Twin , Antepartum Social History Tobacco Use Types Packs/Day Years Used Date Smoking Tobacco: Never Assessed Comments Unknown Sex and Gender Information Value Date Recorded Sex Assigned at Not on file Legal Sex Female 5:23 AM KOSHER SEALER Gender Identity Not on file Sexual Orientation Not on file documented as of this encounter Plan of Treatment Not on file documented as of this encounter Visit Diagnoses Diagnosis Twin , antepartum documented in this encounter Care Teams Hospital Chaplain Relationship Specialty Start Date End Date José Antonio Domingo DO PCP - General 06/24/15 documented as of this encounter
--- OUTSIDE RECORDS SUMMARY | 2024-09-02 14:41 | XMS_ITS | Clinical Summary ---
Author Organization [facility] Administrative Offices Address [address] [place] [address] Care Team Providers Care Thread Tool Grinder Set Up Operator Name Role Phone José Antonio Domingo Primary Care Provider [phone] Allergies No known active allergies Medications azithromycin [...] on file Legal Sex Female 5:23 AM SERVER Gender Identity Not on file Sexual Orientation Not on file Last Filed Vital Signs Vital Sign Reading Time Taken Comments Blood Pressure 95/54 09/05/2014 12:21 AM SERVER Pulse 92 09/05/2014 12:21 AM SERVER Temperature 36.8 C (98.2 F) 09/05/2014 12:21 AM SERVER Respiratory Rate 16 09/04/2014 9:34 PM SERVER Oxygen Saturation 100% 09/05/2014 12:21 AM SERVER Inhaled Oxygen Concentration - - Weight 56.2 kg (124 lb) 09/04/2014 6:59 PM SERVER Height 154.9 cm (5' 1 ) 09/04/2014 6:59 PM SERVER Body Mass Index 23.43 09/04/2014 6:59 PM SERVER Plan of Treatment Health Maintenance Due Date Last Done Comments DTAP/TDAP/TD VACCINES (1 - Tdap) 2005 HEPATITIS B VACCINES (1 of 3 - 19+ 3-dose series) 2005 CERVICAL CANCER SCREENING 2016 INFLUENZA VACCINE (#1) 2024 HPV VACCINES Aged Out No longer eligi ble based on patient's age to complete this topic Insurance [facility] OPEN ACCESS HMO Care Teams Thread Tool Grinder Set Up Operator Relationship Specialty Start Date End Date José Antonio Domingo DO PCP - General 06/24/15
--- OUTSIDE RECORDS SUMMARY | 2024-09-02 14:41 | XMS_ITS | Encounter Summary ---
Author Organization [facility] Address [address] [place] [address] Care Team Providers Care Fishing Hand Name Role Phone José Antonio Domingo Primary Care Provider [phone] Encounter Details Date Type Department Care Team (Late st Contact Info) Description 09/21/2005 Outpatient Historical [facility] Manish Galdamez DO [address] [facility] [address] [place] [address] Er, Authorized P NO ADDRESS ON FILE Influenza with Other Respiratory Manifestations (Primary Dx) Social History Tobacco Use Types Packs/Day Years Used Date Smoking Tobacco: Never Assessed Comments Unknown Sex and Gender Information Value Date Recorded Sex Assigned at Not on file Legal Sex Female 5:23 AM REGISTERED TRAVEL NURSE Gender Identity Not on file Sexual Orientation Not on file documented as of this encounter Plan of Treatment Not on file documented as of this encounter Procedures Procedure Name Priority Date/Time Associated Diagnosis Comments MONONUCLEOSIS SCREEN Routine 09/21/2005 7:54 PM REGISTERED TRAVEL NURSE documented in this encounter Results * MONONUCLEOSIS SCREEN (09/21/2005 7:54 PM REGISTERED TRAVEL NURSE) MONONUCLEOSIS SCREEN Negative Negative INTERFACE SYSTEM 09/21/2005 7:54 PM REGISTERED TRAVEL NURSE Manish Galdamez DO HEMATOLOGY ORDERABLES Final Result INTERFACE SYSTEM Refer to clinic/hospital department documented in this encounter Visit Diagnoses Diagnosis Influenza with other respiratory manifestations- Primary documented in this encounter Care Teams Fishing Hand Relationship Specialty Start Date End Date José Antonio Domingo DO PCP - General 06/24/15 documented as of this encounter
--- OUTSIDE RECORDS SUMMARY | 2024-09-02 14:41 | XMS_ITS | Encounter Summary ---
Author Organization [employer] [facility] Address [address] [place] [address] Care Team Providers Care Sap Business Objects Consultant Name Role Phone José Antonio Domingo DO Primary Care Provider [phone] Encounter Details Date Type Department Care Team (Latest Contact Info) Description 04/04/2008 Outpatient Historical [place] [address] [place] [address] Twin , Antepartum Social History Tobacco Use Types Packs/Day Years Used Date Smoking Tobacco: Never Assessed Comments Unknown Sex and Gender Information Value Date Recorded Sex Assigned at Not on file Legal Sex Female 5:23 AM CLINICAL DATA MANAGEMENT MANAGER Gender Identity Not on file Sexual [...] antepartum documented in this encounter Care Teams Sap Business Objects Consultant Relationship Specialty Start Date End Date José Antonio Domingo DO PCP - General 06/24/15 documented as of this encounter
--- OUTSIDE RECORDS SUMMARY | 2024-09-02 14:41 | XMS_ITS | Encounter Summary ---
Author Organization [facility] Address [address] [place] [address] Care Team Providers Care Revenue Research Analyst Name Role Phone José Antonio Domingo DO Primary Care Provider [phone] Encounter Details Date Type Department Care Team (Late st Contact Info) Description 03/17/[address] [facility] Primary Care - [address] [place] [address] José Antonio Domingo DO Social History Tobacco Use Types Packs/Day Years Used Date Smoking Tobacco: Never Assessed Comments Unknown Sex and Gender Information Value Date Recorded Sex Assigned at Not on file Legal Sex Female 5:23 AM ASSESSOR Gender Identity Not on file Sexual Orientation Not on file documented as of this encounter Plan of Treatment Not on file documented as of this encounter Visit Diagnoses Not on filedocumented in this encounter Care Teams Revenue Research Analyst Relationship Specialty Start Date End Date José Antonio Domingo DO PCP - General 06/24/15 documented as of this encounter
--- OUTSIDE RECORDS SUMMARY | 2024-09-02 14:41 | XMS_ITS | Encounter Summary ---
Author Organization [facility] Address [address] [place] [address] Care Team Providers Care Fork Operator Name Role Phone José Antonio Domingo DO Primary Care Provider [phone] Encounter Details Date Type Department Care Team (Latest Contact Info) Description 06/06/2008 Outpatient Historical [facility] [place] [address] [place] [address] Twin , Antepartum Social History Tobacco Use Types Packs/Day Years Used Date Smoking Tobacco: Never Assessed Comments Unknown Sex and Gender Information Value Date Recorded Sex Assigned at Not on file Legal Sex Female 5:23 AM REHABILITATION CENTER MANAGER Gender Identity Not on file Sexual Orientation Not on file documented as of this encounter Plan of Treatment Not on file documented as of this encounter Procedures Procedure Name Priority Date/Time Associated Diagnosis Comments US BIOPHYSICAL PROF WO NST Timed Study 06/26/2008 2:17 PM REHABILITATION CENTER MANAGER US OB LTD 1 OR MORE FETUSES Timed Study 06/06/2008 11:11 AM REHABILITATION CENTER MANAGER documented in this encounter Results * US BIOPHYSICAL PROF WO NST (06/26/2008 2:17 PM REHABILITATION CENTER MANAGER) Anatomical Region Laterality Modality Pelvis Other Narrative 06/26/2008 2:17 PM REHABILITATION CENTER MANAGER Results in [employer] Procedure Note 01/15/2009 Results in [employer] Paulette Nathan MD US ORDERABLES Final Result * US OB LTD 1 OR MORE FETUSES (06/06/2008 11:11 AM REHABILITATION CENTER MANAGER) Anatomical Region Laterality Modality Pelvis Other Narrative 06/06/2008 11:11 AM REHABILITATION CENTER MANAGER Results in [employer] Procedure Note 01/15/2009 Results in [employer] us Paulette Nathan MD US ORDERABLES Final Result documented in this encounter Visit Diagnoses Diagnosis Twin , antepartum documented in this encounter Care Teams Fork Operator Relationship Specialty Start Date End Date José Antonio Domingo DO PCP - General 06/24/15 documented as of this encounter
== END 2024-09-02 12:57 | disposition home or self-care (01) ==
PROVIDERS: PCP Obstetrics & Gynecology; Visit Provider Obstetrics & Gynecology
DX: N83.202 Unspecified ovarian cyst, left side (principal)
CPT/HCPCS: 76830; 76856

== ENCOUNTER 2024-09-26 08:14 | Emergency (ER) | payer OTHER, SELFPAY ==
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
[2024-09-26 08:14] VITALS: BP 127/85; PULSE 87; RESP 18; TEMP 36.3; O2SAT 100
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
--- NOTE | 2024-09-26 08:32 | ECG_ITS ---
Test Date: 2024-09-26 08:57:09 Measurements Intervals [place] Rate: 70 P: 29 WY: 133 QRS: 35 QRSD: 72 T: 37 QT: 370 QTc: 400 Interpretive Statements SINUS RHYTHM No previous ECG available for comparison Electronically Signed On 09-26-2024 12:06:19 CDT by Mike Ni M.D.
[2024-09-26 09:03] LABS: BEDSIDEPREGUCG Negative (Negative)
[2024-09-26] MEDS: SODIUM CHLORIDE 0.9% IV 1,000 ML 999 ML IV CONT (09:04)
[2024-09-26 09:06] VITALS: BP 123/79; PULSE 74; RESP 15; O2SAT 100
[2024-09-26 09:09] LABS: Basophils Percent Auto 0.4 % (0.2-1.2); Eosinophils Percent Auto 0.6 % (0-4.4); Hemoglobin 9.1 g/dL (12.0-15.0); Immature Granulocyte Absolute 0.02 K/mm3 (0.00-0.031); Immature Granulocyte Percent A 0.3 % (0-0.5); Lymphocytes Absolute Auto 2.11 K/mm3 (0.9-3.2); Lymphocytes Percent Auto 30.6 % (18.3-44.2); Mean Corpuscular HGB Conc 28.4 g/dl (32-36); Mean Corpuscular Hemoglobin 18.8 pg (26-34); Mean Corpuscular Volume 66.3 fl (80-100); Mean Platelet Volume 9.1 fl (7.4-10.4); Monocytes Absolute Auto 0.5 K/mm3 (0.1-0.6); Monocytes Percent Auto 7.7 % (2.6-8.5); Neutrophils Absolute Auto 4.2 K/mm3 (1.3-6.7); Neutrophils Percent Auto 60.4 % (45.5-73.1); Platelet Count Result 543 k/mm3 (150-375); Red Blood Count 4.83 M/mm3 (4.2-5.4); Red Cell Distribution Width 20.1 % (11.5-14.5); White Blood Count 6.9 K/mm3 (4.5-10.0)
[2024-09-26 09:19] LABS: Estimated CRCL calculation 72 ml/min; Estimated Glomerular Filt Rate > 60
[2024-09-26 09:29] LABS: Platelet Estimate Increased (Adequate)
[2024-09-26 09:30] LABS: Anisocytosis 2+
[2024-09-26 09:31] LABS: Hypochromasia 2+; Ovalocytes 1+; Target Cells 1+
[2024-09-26 09:32] LABS: Polychromasia 1+
[2024-09-26 09:33] LABS: Microcytosis 1+ (NORMAL); Schistocytes None Seen
[2024-09-26] MEDS: ONDANSETRON INJ 4 MG/2 ML VIAL IV PUSH (10:06)
[2024-09-26] MEDS: MORPHINE SULFATE (*CRX) 4 MG/ML INJ IV PUSH (10:07)
--- OUTSIDE RECORDS SUMMARY | 2024-09-26 10:19 | XMS_ITS | Clinical Summary ---
Author Organization [facility] Medical Office Building B Address [address] [place] [address] Care Team Providers Care Mushroom Laborer Name Role Phone José Antonio Domingo DO Primary Care Provider Allergies No known active allergies Medications norelgestromin-eth [...] on file Legal Sex Female 3:10 AM BUSINESS ADVISOR Gender Identity Female 11/28/2019 2:13 AM CDT [...] muñoz, Dae Bosch MD Complications:None Delivery Location:This [facility] ([facility]) Last Filed Vital Signs Vital Sign Reading Time Taken Comments Blood Pressure 110/64 11/28/2019 1:34 PM CDT Pulse 76 05/18/2018 12:03 PM BUSINESS ADVISOR Temperature 36.7 C (98.1 F) 11/28/2019 1:34 PM CDT Respiratory Rate 18 11/11/2017 6:50 AM CDT Oxygen Saturation 100% 11/09/2017 11:00 PM CDT Inhaled Oxygen Concentration - - Weight 60.3 kg (133 lb) 11/28/2019 1:34 PM CDT Height 154.9 cm (5' 1 ) 11/28/2019 1:34 PM CDT Body Mass Index 25.13 11/28/2019 1:34 PM CDT Plan of Treatment Not on file Insurance [facility] Advance Directives For more information, please contact: [phone] * Full Code (Latest Code Status on [...] ca se of cardiopulmonary arrest Care Teams Mushroom Laborer Relationship Specialty Start Date End Date José Antonio Domingo DO [address] [place] [id number] PCP - General Family Medicine 04/09/18
--- OUTSIDE RECORDS SUMMARY | 2024-09-26 10:19 | XMS_ITS | Encounter Summary ---
Author Organization [employer] [facility] Address [address] [place] [address] Care Team Providers Care Tractor Trailer Mechanic Name Role Phone José Antonio Domingo DO Primary Care Provider [phone] Encounter Details Date Type Department Care Team (Latest Contact Info) Description 10/07/2008 Outpatient Historical [facility] [place] [place] [address] [place] [address] Twin , Antepartum Social History Tobacco Use Types Packs/Day Years Used Date Smoking Tobacco: Never Assessed Comments Unknown Sex and Gender Information Value Date Recorded Sex Assigned at Not on file Legal Sex Female 5:23 AM LEAVE SPECIALIST Gender Identity Not on file Sexual Orientation Not on file documented as of this encounter Plan of Treatment Not on file documented as of this encounter Visit Diagnoses Diagnosis Twin , antepartum documented in this encounter Care Teams Tractor Trailer Mechanic Relationship Specialty Start Date End Date José Antonio Domingo DO PCP - General 06/24/15 documented as of this encounter
--- OUTSIDE RECORDS SUMMARY | 2024-09-26 10:19 | XMS_ITS | Clinical Summary ---
Author Organization [facility] [employer] Address [address] [place] [address] Care Team Providers Care Pharmacy Account Director Name Role Phone José Antonio Domingo Primary Care Provider [phone] Source Comments [facility] [employer],non-owned Affiliates and Associated Physician Practices is amultiple site organization consisting of ambulatory clinics and hospital sitesin [place], [place], [place] and [place]. This disclosure is being madepursuant to the Care Everywhere program and may not contain all information available regarding this patient. Last updated 18.[facility] [employer] Allergies No known active allergies Medications * [...] (FLONASE) 50 MCG/ACT nasal sprayIndications:Jimmy opharyngitis acute Lynn 2 sprays into each nostril once daily 1 bottles 06/26/2018 Active Active Problems No known active problems Immunizations Name Administration Dates Next Due Zhitu primary monoval ent 12+ yr 0.3mL Purple [...] Comments Blood Pressure 114/68 06/26/2018 6:21 PM VACUUM SPINDLE SANDER Pulse 84 06/26/2018 6:21 PM VACUUM SPINDLE SANDER Temperature 37 C (98.6 F) 06/26/2018 6:21 PM VACUUM SPINDLE SANDER Respiratory Rate 16 06/26/2018 6:21 PM VACUUM SPINDLE SANDER Oxygen Saturation 98% 06/26/2018 6:21 PM VACUUM SPINDLE SANDER Inhaled Oxygen Concentration - - Weight 60.3 kg (133 lb) 06/26/2018 6:21 PM VACUUM SPINDLE SANDER Height 154.9 cm (5' 1 ) 06/26/2018 6:21 PM VACUUM SPINDLE SANDER Body Mass Index 25.13 06/26/2018 6:21 PM VACUUM SPINDLE SANDER Plan of Treatment Health Maintenance Due Date [...] ZOSTER VACCINE (1 of 2) 2036 MENINGOCOCCAL GROUPS A/C/Y/W VACCINE Aged Out 01/24/2018 No longer eligible b ased on patient's age to complete this topic HEPATITIS A VACCINE Completed 08/29/2018, 01/31/2018 HIB VACCINE Aged Out No longer eligi ble based on patient's age to complete this topic HPV VACCINE Aged Out No longer eligi ble based on patient's age to complete this topic MENINGOCOCCAL (Group B) VACCINE SHARED DECISION-MAKING Aged Out No longer eligible based on patient's age to complete this topic PNEUMOCOCCAL VACCINE Aged Out No long er eligible based on patient's age to complete this topic Care Teams Pharmacy Account Director Relationship Specialty Start Date End Date José Antonio Domingo DO PCP - General Family Medicine 11/06/12
--- OUTSIDE RECORDS SUMMARY | 2024-09-26 10:19 | XMS_ITS | Referral Summary ---
Author Organization [facility] Medical [facility] Building B Address [address] [place] [address] Care Team Providers Care Certified Personal Chef Name Role Phone Chayo José Antonio Coats DO Primary Care Provider [phone] Allergies No known active allergies Medications norelgestromin-eth [...] on file Legal Sex Female 3:10 AM VEST MAKER Gender Identity Female 11/28/2019 2:13 AM CDT Sexual Orientation Straight 11/28/2019 2: 13 AM CDT Last Filed Vital Signs Vital Sign Reading Time Taken Comments Blood Pressure 110/64 11/28/2019 1:34 PM CDT Pulse 76 05/18/2018 12:03 PM VEST MAKER Temperature 36.7 C (98.1 F) 11/28/2019 1:34 [...] Advance Directives For more information, please contact: [phone] * Full Code (Latest Code Status on [...] ca se of cardiopulmonary arrest Care Teams Certified Personal Chef Relationship Specialty Start Date End Date José Antonio Domingo, [address] [place] [id number] PCP - General Family Medicine 04/09/18
--- OUTSIDE RECORDS SUMMARY | 2024-09-26 10:20 | XMS_ITS | Encounter Summary ---
Author Organization [employer] [facility] Address [address] [place] [address] Care Team Providers Care Intern Architect Name Role Phone José Antonio Domingo DO Primary Care Provider [phone] Encounter Details Date Type Department Care Team (Latest Contact Info) Description 06/07/2008 Outpatient Historical [facility] [place] [address] [place] [address] Twin , Antepartum Social History Tobacco Use Types Packs/Day Years Used Date Smoking Tobacco: Never Assessed Comments Unknown Sex and Gender Information Value Date Recorded Sex Assigned at Not on file Legal Sex Female 5:23 AM CONCRETE FINISHER Gender Identity Not on file Sexual Orientation Not on file documented as of this encounter Plan of Treatment Not on file documented as of this encounter Visit Diagnoses Diagnosis Twin , antepartum documented in this encounter Care Teams Intern Architect Relationship Specialty Start Date End Date José Antonio Domingo DO PCP - General 06/24/15 documented as of this encounter
--- OUTSIDE RECORDS SUMMARY | 2024-09-26 10:20 | XMS_ITS | Encounter Summary ---
Author Organization [employer] Address [address] [place] [address] Care Team Providers Care Liquefaction Supervisor Name Role Phone José Antonio Domingo DO Primary Care Provider [phone] Encounter Details Date Type Department Care Team (Latest Contact Info) Description 06/06/2008 Outpatient Historical [place] [address] [place] [address] Twin , Antepartum Social History Tobacco Use Types Packs/Day Years Used Date Smoking Tobacco: Never Assessed Comments Unknown Sex and Gender Information Value Date Recorded Sex Assigned at Not on file Legal Sex Female 5:23 AM TRUCK TERMINAL MANAGER Gender Identity Not on file Sexual Orientation Not on file documented as of this encounter Plan of Treatment Not on file documented as of this encounter Procedures Procedure Name Priority Date/Time Associated Diagnosis Comments US BIOPHYSICAL PROF WO NST Timed Study 06/26/2008 2:17 PM TRUCK TERMINAL MANAGER US OB LTD 1 OR MORE FETUSES Timed Study 06/06/2008 11:11 AM TRUCK TERMINAL MANAGER documented in this encounter Results * US BIOPHYSICAL PROF WO NST (06/26/2008 2:17 PM TRUCK TERMINAL MANAGER) Anatomical Region Laterality Modality Pelvis Other Narrative 06/26/2008 2:17 PM TRUCK TERMINAL MANAGER Results in [employer] Procedure Note 01/15/2009 Results in [employer] Paulette Nathan MD US ORDERABLES Final Result * US OB LTD 1 OR MORE FETUSES (06/06/2008 11:11 AM TRUCK TERMINAL MANAGER) Anatomical Region Laterality Modality Pelvis Other Narrative 06/06/2008 11:11 AM TRUCK TERMINAL MANAGER Results in [employer] Procedure Note 01/15/2009 Results in [employer] us Paulette Nathan MD US ORDERABLES Final Result documented in this encounter Visit Diagnoses Diagnosis Twin , antepartum documented in this encounter Care Teams Liquefaction Supervisor Relationship Specialty Start Date End Date José Antonio Domingo DO PCP - General 06/24/15 documented as of this encounter
--- OUTSIDE RECORDS SUMMARY | 2024-09-26 10:20 | XMS_ITS | Encounter Summary ---
Author Organization [employer] [facility] Address [address] [place] [address] Care Team Providers Care Assembly Inspector Helper Name Role Phone José Antonio Domingo DO Primary Care Provider [phone] Encounter Details Date Type Department Care Team (Latest Contact Info) Description 03/03/2008 Outpatient Historical [place] [address] [place] [address] Twin , Antepartum Social History Tobacco Use Types Packs/Day Years Used Date Smoking Tobacco: Never Assessed Comments Unknown Sex and Gender Information Value Date Recorded Sex Assigned at Not on file Legal Sex Female 5:23 AM EMULSION COATER Gender Identity Not on file Sexual Orientation [...] antepartum documented in this encounter Care Teams Assembly Inspector Helper Relationship Specialty Start Date End Date José Antonio Domingo DO PCP - General 06/24/15 documented as of this encounter
--- OUTSIDE RECORDS SUMMARY | 2024-09-26 10:20 | XMS_ITS | Encounter Summary ---
Author Organization [employer] [facility] Address [address] [place] [address] Care Team Providers Care C Programmer Name Role Phone José Antonio Domingo DO Primary Care Provider [phone] Encounter Details Date Type Department Care Team (Latest Contact Info) Description 09/05/2008 Outpatient Historical [facility] [place] [address] [place] [address] Twin , Antepartum Social History Tobacco Use Types Packs/Day Years Used Date Smoking Tobacco: Never Assessed Comments Unknown Sex and Gender Information Value Date Recorded Sex Assigned at Not on file Legal Sex Female 5:23 AM TOOL ANALYST Gender Identity Not on file Sexual Orientation Not on file documented as of this encounter Plan of Treatment Not on file documented as of this encounter Visit Diagnoses Diagnosis Twin , antepartum documented in this encounter Care Teams C Programmer Relationship Specialty Start Date End Date José Antonio Domingo DO PCP - General 06/24/15 documented as of this encounter
--- OUTSIDE RECORDS SUMMARY | 2024-09-26 10:20 | XMS_ITS | Encounter Summary ---
Author Organization [employer] [facility] Address [address] [place] [address] Care Team Providers Care Drafting Layout Man Name Role Phone José Antonio Domingo DO Primary Care Provider [phone] Encounter Details Date Type Department Care Team (Latest Contact Info) Description 09/10/[address] [facility] [place] [address] [place] [address] Twin , Antepartum Social History Tobacco Use Types Packs/Day Years Used Date Smoking Tobacco: Never Assessed Comments Unknown Sex and Gender Information Value Date Recorded Sex Assigned at Not on file Legal Sex Female 5:23 AM STOPPER SETTER Gender Identity Not on file Sexual Orientation Not on file documented as of this encounter Plan of Treatment Not on file documented as of this encounter Visit Diagnoses Diagnosis Twin , antepartum documented in this encounter Care Teams Drafting Layout Man Relationship Specialty Start Date End Date José Antonio Domingo DO PCP - General 06/24/15 documented as of this encounter
--- OUTSIDE RECORDS SUMMARY | 2024-09-26 10:20 | XMS_ITS | Encounter Summary ---
Author Organization [employer] [facility] Address [address] [place] [address] Care Team Providers Care All Around Gear Machine Operator Name Role Phone Brayan Domingon Gloria Primary Care Provider [phone] Encounter Details Date Type Department Care Team (Latest Contact Info) Description 07/08/2008 Outpatient Historical [facility] [place] [address] [place] [address] Twin , Antepartum Social History Tobacco Use Types Packs/Day Years Used Date Smoking Tobacco: Never Assessed Comments Unknown Sex and Gender Information Value Date Recorded Sex Assigned at Not on file Legal Sex Female 5:23 AM GRAPHICS MANAGER Gender Identity Not on file Sexual Orientation Not on file documented as of this encounter Plan of Treatment Not on file documented as of this encounter Procedures Procedure Name Priority Date/Time Associated Diagnosis Comments US BIOPHYSICAL PROF WO NST Timed Study 08/04/2008 1:59 PM GRAPHICS MANAGER US BIOPHYSICAL PROF WO NST Timed Study 07/29/2008 8:38 AM GRAPHICS MANAGER US OB LTD 1 OR MORE FETUSES Timed Study 07/14/2008 3:37 PM GRAPHICS MANAGER documented in this encounter Results * US BIOPHYSICAL PROF WO NST (08/04/2008 1:59 PM GRAPHICS MANAGER) Anatomical Region Laterality Modality Pelvis Other Narrative 08/04/2008 1:59 PM GRAPHICS MANAGER Results in [employer] Procedure Note 01/15/2009 Results in [employer] Paulette Nathan MD US ORDERABLES Final Result * US BIOPHYSICAL PROF WO NST (07/29/2008 8:38 AM GRAPHICS MANAGER) Anatomical Region Laterality Modality Pelvis Other Narrative 07/29/2008 8:38 AM GRAPHICS MANAGER Results in [employer] Procedure Note 01/15/2009 Results in [employer] Paulette Nathan MD US ORDERABLES Final Result * US OB LTD 1 OR MORE FETUSES (07/14/2008 3:37 PM GRAPHICS MANAGER) Anatomical Region Laterality Modality Pelvis Other Narrative 07/14/2008 3:37 PM GRAPHICS MANAGER Results in [employer] Procedure Note 01/15/2009 Results in [employer] Paulette Nathan MD US ORDERABLES Final Result documented in this encounter Visit Diagnoses Diagnosis Twin , antepartum documented in this encounter Care Teams All Around Gear Machine Operator Relationship Specialty Start Date End Date José Antonio Domingo DO PCP - General 06/24/15 documented as of this encounter
--- OUTSIDE RECORDS SUMMARY | 2024-09-26 10:20 | XMS_ITS | Encounter Summary ---
Author Organization [employer] [facility] Address [address] [place] [address] Care Team Providers Care Colorectal Surgeon Name Role Phone José Antonio Domingo DO Primary Care Provider [phone] Encounter Details Date Type Department Care Team (Latest Contact Info) Description 04/04/2008 Outpatient Historical [place] [address] [place] [address] Twin , Antepartum Social History Tobacco Use Types Packs/Day Years Used Date Smoking Tobacco: Never Assessed Comments Unknown Sex and Gender Information Value Date Recorded Sex Assigned at Not on file Legal Sex Female 5:23 AM EXTENDER Gender Identity Not on file Sexual Orientation [...] antepartum documented in this encounter Care Teams Colorectal Surgeon Relationship Specialty Start Date End Date José Antonio Domingo DO PCP - General 06/24/15 documented as of this encounter
--- OUTSIDE RECORDS SUMMARY | 2024-09-26 10:20 | XMS_ITS | Encounter Summary ---
Author Organization [facility] Address [address] [place] [address] Care Team Providers Care Flask Carrier Name Role Phone José Antonio Domingo Primary Care Provider [phone] Encounter Details Date Type Department Care Team (Late st Contact Info) Description 09/21/2005 Outpatient Historical [facility] Manish Galdamez DO [address] [facility] [address] [place] [address] Er, Authorized P NO ADDRESS ON FILE Influenza with Other Respiratory Manifestations (Primary Dx) Social History Tobacco Use Types Packs/Day Years Used Date Smoking Tobacco: Never Assessed Comments Unknown Sex and Gender Information Value Date Recorded Sex Assigned at Not on file Legal Sex Female 5:23 AM PILLING MACHINE OPERATOR Gender Identity Not on file Sexual Orientation Not on file documented as of this encounter Plan of Treatment Not on file documented as of this encounter Procedures Procedure Name Priority Date/Time Associated Diagnosis Comments MONONUCLEOSIS SCREEN Routine 09/21/2005 7:54 PM PILLING MACHINE OPERATOR documented in this encounter Results * MONONUCLEOSIS SCREEN (09/21/2005 7:54 PM PILLING MACHINE OPERATOR) MONONUCLEOSIS SCREEN Negative Negative INTERFACE SYSTEM 09/21/2005 7:54 PM PILLING MACHINE OPERATOR Manish Galdamez DO HEMATOLOGY ORDERABLES Final Result INTERFACE SYSTEM Refer to clinic/hospital department documented in this encounter Visit Diagnoses Diagnosis Influenza with other respiratory manifestations- Primary documented in this encounter Care Teams Flask Carrier Relationship Specialty Start Date End Date José Antonio Domingo DO PCP - General 06/24/15 documented as of this encounter
--- OUTSIDE RECORDS SUMMARY | 2024-09-26 10:20 | XMS_ITS | Encounter Summary ---
Author Organization [facility] Address [address] [place] [address] Care Team Providers Care Slabbing Machine Operator Name Role Phone Brayan Domingon Gloria Primary Care Provider [phone] Encounter Details Date Type Department Care Team (Late st Contact Info) Description 05/13/2008 Outpatient Historical [facility] Er, Authorized P NO ADDRESS ON FILE Manish Galdamez DO [address] [facility] [address] [place] [address] Social History Tobacco Use Types Packs/Day Years Used Date Smoking Tobacco: Never Assessed Comments Unknown Sex and Gender Information Value Date Recorded Sex Assigned at Not on file Legal Sex Female 5:23 AM MACHINE MARKER Gender Identity Not on file Sexual Orientation Not on file documented as of this encounter Plan of Treatment Not on file documented as of this encounter Procedures Procedure Name Priority Date/Time Associated Diagnosis Comments STREP SCREEN GROUP A W/CULTURE Stat 05/13/2008 3:30 AM MACHINE MARKER CBC WITH DIFFERENTIAL Stat 05/13/2008 3:30 AM MACHINE MARKER COMPREHENSIVE METABOLIC PANEL Stat 05/13/2008 3:30 AM MACHINE MARKER documented in this encounter Results * (ABNORMAL) CBC WITH DIFFERENTIAL (05/13/2008 3:30 AM MACHINE MARKER) MPV 10.0 9.3 - 12.4 fL [facility] HEMATOCRIT 31.7(L) 35.5 - 44.0 % [facility] RDW-STDEV 41.9 37.1 - 48.7 fL [facility] RBC 3.74(L) 3.90 - 4.90 M/uL [facility] MCHC 33.8 31.5 - 35.5 % [facility] MCV 84.8 82.0 - 99.0 fL [facility] PLATELETS 243 140 - 350 K/uL [facility] HEMOGLOBIN 10.7(L) 11.8 - 14.8 g/dL [facility] RDW 13.8 11.5 - 14.5 % [facility] WBC 8.6 4.0 - 9.8 K/uL [facility] MCH 28.6 27.2 - 32.6 pg [facility] BASOPHILS 0 0 - 2 % [facility] BASOPHILS ABSOLUTE 0.01 0.00 - 0.20 K/uL [facility] MONOCYTES 8 3 - 13 % [facility] MONOCYTE ABSOLUTE 0.65 0.10 - 1.30 K/uL [facility] NEUTROPHILS 78(H) 45 - 70 % [facility] NEUTROPHIL ABSOLUTE 6.70 1.90 - 7.00 K/uL [facility] EOSINOPHILS 0 0 - 7 % [facility] EOSINOPHIL ABSOLUTE 0.01 0.00 - 0.70 K/uL [facility] LYMPHOCYTES 14(L) 16 - 45 % [facility] LYMPHOCYTE ABSOLUTE 1.23 0.70 - 4.50 K/uL [facility] Blood specimen (specimen) 05/13/2008 3:30 AM MACHINE MARKER 05/13/2008 3:40 AM MACHINE MARKER us Manish Galdamez DO HEMATOLOGY ORDERABLES Edited INTERFACE SYSTEM Refer to clinic/hospital department [facility] CLIA# [id number] [address] [place] [address] * STREP SCREEN GROUP A W/CULTURE (05/13/2008 3:30 AM MACHINE MARKER) PRELIMINARY REPORT Negative: Group A Strep Screen - Phoned report (with read back verified) to Anastasia in ER 05/13/08 3:53 AM [facility] FINAL REPORT Negative: Group A Strep Screen - Phoned report (with read back verified) to Anastasia in ER 05/13/08 3:53 AM Negative screen result was confirmed by culture. [facility] Specimen from throat (specimen) 05/13/2008 3:30 AM MACHINE MARKER 05/13/2008 3:43 AM MACHINE MARKER Manish Galdamez DO MICROBIOLOGY - GENERAL ORDER ROMULO Final Result Performing Organization Address [facility] de Phone Number INTERFACE SYSTEM Refer to clinic/hospital department [facility] CLIA# [id number] [address] [place] [address] * (ABNORMAL) COMPREHENSIVE METABOLIC PANEL (05/13/2008 3:30 AM MACHINE MARKER) SODIUM 136 135 - 145 mmol/L [facility] ALKALINE PHOSPHATASE 45 35 - 104 U/L [facility] CO2 21(L) 22 - 30 mmol/L [facility] BILIRUBIN TOTAL 0.2 0.2 - 1.0 mg/dL [facility] POTASSIUM 3.2(L) 3.5 - 4.9 mmol/L [facility] TOTAL PROTEIN 7.0 6.3 - 8.6 g/dL [facility] GLUCOSE 86 65 - 99 mg/dL [facility] AST 20 12 - 32 U/L [facility] BUN 6 6 - 20 mg/dL [facility] CALCIUM 8.9 8.6 - 10.2 mg/dL [facility] ALBUMIN 3.8 3.4 - 4.8 g/dL [facility] CHLORIDE 103 96 - 108 mmol/L [facility] CREATININE 0.56 0.51 - 0.95 mg/dL [facility] ALT 9 0 - 31 U/L [facility] GFR, >60 >=60 mL/min/1. 7 sq meter [facility] GFR >60 >=60 mL/min/1. 7 sq meter [facility] Comment: Modification of Diet in Renal Disease (MDRD) study formula. Estimated GFR rate interpretative information for both Americans and non- Americans is available on the [facility] Intranet at: [email or web address] the [email or web address] Select: Lab Policies and Procedures Select: Reference Ranges - GFR Blood specimen (specimen) 05/13/2008 3:30 AM MACHINE MARKER 05/13/2008 3:40 AM MACHINE MARKER Manish Galdamez DO CHEMISTRY ORDERABLES Edited INTERFACE SYSTEM Refer to clinic/hospital department [facility] CLIA# [id number] [address] [place] [address] documented in this encounter Visit Diagnoses Not on filedocumented in this encounter Care Teams Slabbing Machine Operator Relationship Specialty Start Date End Date José Antonio Domingo DO PCP - General 06/24/15 documented as of this encounter
--- OUTSIDE RECORDS SUMMARY | 2024-09-26 10:20 | XMS_ITS | Encounter Summary ---
Author Organization [facility] Address [address] [place] [address] Care Team Providers Care Soup Mixer Name Role Phone Brayan Domingon Gloria Primary Care Provider [phone] Encounter Details Date Type Department Care Team (Late st Contact Info) Description 07/07/2008 Outpatient Historical [place] [address] [place] [address] Normal Delivery Social History Tobacco Use Types Packs/Day Years Used Date Smoking Tobacco: Never Assessed Comments Unknown Sex and Gender Information Value Date Recorded Sex Assigned at Not on file Legal Sex Female 5:23 AM COUNTERINTELLIGENCE AGENT Gender Identity Not on file Sexual Orientation Not on file documented as of this encounter Plan of Treatment Not on file documented as of this encounter Procedures Procedure Name Priority Date/Time Associated Diagnosis Comments TYPE AND SCREEN Routine 09/04/2008 6:57 PM COUNTERINTELLIGENCE AGENT CBC WITH DIFFERENTIAL Stat 09/04/2008 6:44 PM COUNTERINTELLIGENCE AGENT PATHOLOGY Routine 09/04/2008 5:00 PM COUNTERINTELLIGENCE AGENT documented in this encounter Results * TYPE AND SCREEN (09/04/2008 6:57 PM COUNTERINTELLIGENCE AGENT) HISTORY CHECK No Historical ABO/Rh [facility] SPECIMEN LIFE 3 days from drawdate [facility] ABO/RH TYPE A Positive [facility] ANTIBODY SCREEN Negative [facility] Blood specimen (specimen) 09/04/2008 6:57 PM COUNTERINTELLIGENCE AGENT Mio Sosa MD BLOOD BANK ORDERABLES Edited INTERFACE SYSTEM Refer to clinic/hospital department [facility] CLIA# [id number] [address] [place] [address] * (ABNORMAL) CBC WITH DIFFERENTIAL (09/04/2008 6:44 PM COUNTERINTELLIGENCE AGENT) WBC 9.7 4.0 - 9.8 K/uL [facility] MCH 28.7 27.2 - 32.6 pg [facility] MPV 11.6 9.3 - 12.4 fL [facility] HEMATOCRIT 35.3(L) 35.5 - 44.0 % [facility] RDW-STDEV 45.0 37.1 - 48.7 fL [facility] RBC 4.22 3.90 - 4.90 M/uL [facility] MCHC 34.3 31.5 - 35.5 % [facility] MCV 83.6 82.0 - 99.0 fL [facility] PLATELETS 185 140 - 350 K/uL [facility] HEMOGLOBIN 12.1 11.8 - 14.8 g/dL [facility] RDW 14.7(H) 11.5 - 14.5 % [facility] LYMPHOCYTES 35 16 - 45 % [facility] LYMPHOCYTE ABSOLUTE 3.36 0.70 - 4.50 K/uL [facility] BASOPHILS 0 0 - 2 % [facility] BASOPHILS ABSOLUTE 0.01 0.00 - 0.20 K/uL [facility] MONOCYTES 10 3 - 13 % [facility] MONOCYTE ABSOLUTE 1.01 0.10 - 1.30 K/uL [facility] NEUTROPHILS 55 45 - 70 % [facility] NEUTROPHIL ABSOLUTE 5.30 1.90 - 7.00 K/uL [facility] EOSINOPHILS 0 0 - 7 % [facility] EOSINOPHIL ABSOLUTE 0.02 0.00 - 0.70 K/uL [facility] Blood specimen (specimen) 09/04/2008 6:44 PM COUNTERINTELLIGENCE AGENT 09/04/2008 7:04 PM COUNTERINTELLIGENCE AGENT us Mio Sosa MD HEMATOLOGY ORDERABLES Edited INTERFACE SYSTEM Refer to clinic/hospital department [facility] CLIA# [id number] [address] [place] [address] * PATHOLOGY (09/04/2008 5:00 PM COUNTERINTELLIGENCE AGENT) FINAL REPORT [address] [address] Patient: ROSA HERCULES : 1985 Procedure Date: 09/04/2008 Accession Date: 09/05/2008 Case No: [id number] Ordering Dr: MIO SOSA Case types AW, BW, FW, NW and SH are performed by [facility], [place], [place] SURGICAL PATHOLOGY & NON-GYNECOLOGIC CYTOPATHOLOGY REPORT [...] spongy cut surfaces with no lesions identified. Horse Racetrack Manager sections are submitted as follows: A1-umbilical cord and membranes; A2 through A4-financial foundations representative sections of central parenchyma; A5-dividing membranes. [...] from the margin. The surface is blue-mera with tortuous vessels coursing beneath the chorion. The maternal surface is red-mera with intact cotyledons and no lesions identified. Serial sectioning reveals beefy red, spongy parenchyma with no lesions identified. Horse Racetrack Manager sections are submitted as follows: B1- umbilical cord and membranes; B2 through B4-financial foundations representative sections of central parenchyma. OEMILIE/GIAN 09.06.2008 12:17 pm Microscopic: The slides are labeled [id number], Rosa Hercules. The villous morphology and recorded [...] 05:17 pm INTERFACE SYSTEM 09/04/2008 5:00 PM COUNTERINTELLIGENCE AGENT us Mio Sosa MD PATHOLOGY/CYTOLOGY ORDERABLES Final Result INTERFACE SYSTEM Refer to clinic/hospital department documented in this encounter Visit Diagnoses Diagnosis Normal delivery documented in this encounter Care Teams Soup Mixer Relationship Specialty Start Date End Date José Antonio Domingo DO PCP - General 06/24/15 documented as of this encounter
--- OUTSIDE RECORDS SUMMARY | 2024-09-26 10:20 | XMS_ITS | Encounter Summary ---
Author Organization [facility] Address [address] [place] [address] Care Team Providers Care Assistant Elementary Teacher Name Role Phone José Antonio Domingo DO Primary Care Provider [phone] Encounter Details Date Type Department Care Team (Late st Contact Info) Description 03/17/1999 Outpatient [facility] Primary Care - [address] [place] [address] José Antonio Domingo DO Social History Tobacco Use Types Packs/Day Years Used Date Smoking Tobacco: Never Assessed Comments Unknown Sex and Gender Information Value Date Recorded Sex Assigned at Not on file Legal Sex Female 5:23 AM PHYSIATRIST Gender Identity Not on file Sexual Orientation Not on file documented as of this encounter Plan of Treatment Not on file documented as of this encounter Visit Diagnoses Not on filedocumented in this encounter Care Teams Assistant Elementary Teacher Relationship Specialty Start Date End Date José Antonio Domingo DO PCP - General 06/24/15 documented as of this encounter
--- OUTSIDE RECORDS SUMMARY | 2024-09-26 10:20 | XMS_ITS | Encounter Summary ---
Author Organization [facility] Address [address] [place] [address] Care Team Providers Care Staff Interpreter Name Role Phone José Antonio Domingo DO Primary Care Provider [phone] Encounter Details Date Type Department Care Team (Late st Contact Info) Description 02/15/1999 Outpatient [facility] Primary Care - [address] [place] [address] José Antonio Domingo DO Social History Tobacco Use Types Packs/Day Years Used Date Smoking Tobacco: Never Assessed Comments Unknown Sex and Gender Information Value Date Recorded Sex Assigned at Not on file Legal Sex Female 5:23 AM ONLINE PUBLISHER Gender Identity Not on file Sexual Orientation Not on file documented as of this encounter Plan of Treatment Not on file documented as of this encounter Visit Diagnoses Not on filedocumented in this encounter Care Teams Staff Interpreter Relationship Specialty Start Date End Date José Antonio Domingo DO PCP - General 06/24/15 documented as of this encounter
--- OUTSIDE RECORDS SUMMARY | 2024-09-26 10:20 | XMS_ITS | Encounter Summary ---
Author Organization [facility] Address [address] [place] [address] Care Team Providers Care Animal Assisted Therapist Name Role Phone José Antonio Domingo DO Primary Care Provider [phone] Encounter Details Date Type Department Care Team (Latest Contact Info) Description 05/06/2008 Outpatient [facility] [place] [address] [place] [address] Twin , Antepartum Social History Tobacco Use Types Packs/Day Years Used Date Smoking Tobacco: Never Assessed Comments Unknown Sex and Gender Information Value Date Recorded Sex Assigned at Not on file Legal Sex Female 5:23 AM INVERTEBRATE PALEONTOLOGIST Gender Identity Not on file Sexual Orientation [...] antepartum documented in this encounter Care Teams Animal Assisted Therapist Relationship Specialty Start Date End Date José Antonio Domingo DO PCP - General 06/24/15 documented as of this encounter
--- OUTSIDE RECORDS SUMMARY | 2024-09-26 10:20 | XMS_ITS | Encounter Summary ---
Author Organization [employer] Address [address] [place] [address] Care Team Providers Care Tiger Machine Operator Name Role Phone Brayan Domingon Gloria Primary Care Provider [phone] Encounter Details Date Type Department Care Team (Latest Contact Info) Description 08/09/2008 Outpatient Historical [facility] [place] [address] [place] [address] Twin , Antepartum Social History Tobacco Use Types Packs/Day Years Used Date Smoking Tobacco: Never Assessed Comments Unknown Sex and Gender Information Value Date Recorded Sex Assigned at Not on file Legal Sex Female 5:23 AM NURSING HOME AIDE Gender Identity Not on file Sexual Orientation Not on file documented as of this encounter Plan of Treatment Not on file documented as of this encounter Procedures Procedure Name Priority Date/Time Associated Diagnosis Comments US BIOPHYSICAL PROF WO NST Timed Study 09/01/2008 10:46 AM NURSING HOME AIDE US BIOPHYSICAL PROF WO NST Timed Study 08/25/2008 11:25 AM NURSING HOME AIDE US OB LTD 1 OR MORE FETUSES Timed Study 08/11/2008 10:14 AM NURSING HOME AIDE US BIOPHYSICAL PROF W NST Timed Study 08/11/2008 10:14 AM NURSING HOME AIDE documented in this encounter Results * US BIOPHYSICAL PROF WO NST (09/01/2008 10:46 AM NURSING HOME AIDE) Anatomical Region Laterality Modality Pelvis Other Narrative 09/01/2008 10:46 AM NURSING HOME AIDE Results in [employer] Procedure Note 01/15/2009 Results in [employer] Paulette Nathan MD US ORDERABLES Final Result * US BIOPHYSICAL PROF WO NST (08/25/2008 11:25 AM NURSING HOME AIDE) Anatomical Region Laterality Modality Pelvis Other Narrative 08/25/2008 11:25 AM NURSING HOME AIDE Results in [employer] Procedure Note 01/15/2009 Results in [employer] Paulette Nathan MD US ORDERABLES Final Result * US BIOPHYSICAL PROF WO NST (08/18/2008 9:34 AM NURSING HOME AIDE) Anatomical Region Laterality Modality Pelvis Other Narrative Procedure Note 01/15/2009 Results in [employer] Paulette Nathan MD US ORDERABLES Final Result * US OB LTD 1 OR MORE FETUSES (08/11/2008 10:14 AM NURSING HOME AIDE) Anatomical Region Laterality Modality Pelvis Other Narrative 08/11/2008 10:14 AM NURSING HOME AIDE Results in [employer] Procedure Note 01/15/2009 Results in [employer] Paulette Nathan MD US ORDERABLES Final Result * US BIOPHYSICAL PROFILE (08/11/2008 10:14 AM NURSING HOME AIDE) Anatomical Region Laterality Modality Pelvis Other Narrative 08/11/2008 10:14 AM NURSING HOME AIDE Results in [employer] Procedure Note 01/15/2009 Results in [employer] Paulette Nathan MD US ORDERABLES Final Result documented in this encounter Visit Diagnoses Diagnosis Twin , antepartum documented in this encounter Care Teams Tiger Machine Operator Relationship Specialty Start Date End Date José Antonio Domingo DO PCP - General 06/24/15 documented as of this encounter
--- OUTSIDE RECORDS SUMMARY | 2024-09-26 10:20 | XMS_ITS | Clinical Summary ---
Author Organization [facility] Administrative Offices Address [address] [place] [address] Care Team Providers Care Kitchen Lead Name Role Phone José Antonio Domingo Primary Care Provider [phone] Allergies No known active allergies Medications azithromycin [...] on file Legal Sex Female 5:23 AM FAMILY DAY CARE WORKER Gender Identity Not on file Sexual Orientation Not on file Last Filed Vital Signs Vital Sign Reading Time Taken Comments Blood Pressure 95/54 09/05/2014 12:21 AM FAMILY DAY CARE WORKER Pulse 92 09/05/2014 12:21 AM FAMILY DAY CARE WORKER Temperature 36.8 C (98.2 F) 09/05/2014 12:21 AM FAMILY DAY CARE WORKER Respiratory Rate 16 09/04/2014 9:34 PM FAMILY DAY CARE WORKER Oxygen Saturation 100% 09/05/2014 12:21 AM FAMILY DAY CARE WORKER Inhaled Oxygen Concentration - - Weight 56.2 kg (124 lb) 09/04/2014 6:59 PM FAMILY DAY CARE WORKER Height 154.9 cm (5' 1 ) 09/04/2014 6:59 PM FAMILY DAY CARE WORKER Body Mass Index 23.43 09/04/2014 6:59 PM FAMILY DAY CARE WORKER Plan of Treatment Health Maintenance Due Date Last Done Comments DTAP/TDAP/TD VACCINES (1 - Tdap) 2005 HEPATITIS B VACCINES (1 of 3 - 19+ 3-dose series) 2005 PAP SMEAR 2016 INFLUENZA VACCINE (#1) 2024 HPV VACCINES Aged Out No longer eligi ble based on patient's age to complete this topic Insurance [facility] OPEN ACCESS HMO Care Teams Kitchen Lead Relationship Specialty Start Date End Date José Antonio Domingo DO PCP - General 06/24/15
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
[2024-09-26 11:35] VITALS: BP 105/74; PULSE 73; RESP 16; TEMP 36.4; O2SAT 100
== END 2024-09-26 11:40 | disposition home or self-care (01) ==
PROVIDERS: Emergency Provider Emergency Medicine
DX: S39.92XA Unspecified injury of lower back, initial encounter (principal); S49.92XA Unspecified injury of left shoulder and upper arm, initial encounter; D25.9 Leiomyoma of uterus, unspecified; M62.08 Separation of muscle (nontraumatic), other site; V48.5XXA Car driver injured in noncollision transport accident in traffic accident, initial encounter
CPT/HCPCS: 36415; 70450; 71260; 72125; 73030; 74177; 81025; 85025; 93005; 96361; 96374; 96375; 99284; J2270; J2405; J7030; L0140; Q9967